=== PATIENT | male | born 1965 | race Caucasian/White ===

== ENCOUNTER 2016-04-15 12:17 | Inpatient (IN) | payer OTHER ==
[~2016-04-15] VITALS: Ht 182.9 cm; Wt 108.9 kg
[~2016-04-15 12:17] MED LIST: AMLO10TA2 PO; ASPI81TA13 PO; ATOR1TAB21 PO; AUGM875T27 PO; COLA100C PO; DOXY100T PO; EUCECRE3 EXT; HEPA100SYR IV; INSUDET SC; INSUHUMDS SC; INSULADS SC; INSULANT SC; ISOS30TA4 PO; LIDO5OI TOP; LISI-538 PO; LISI10TA4 PO; MAPA325T2 PO; METF1000 PO; METF500T PO; MYLASSUD PO; NORCOTAB PO; ONDA4TAB6 SL; [UNRECOGNIZED DRUG - CODE] IV
[2016-04-15] MEDS ORDERED: MIRALAX *UNIT DOSE* 17GM PACKET PO PRN (14:00)
[2016-04-15] MEDS ORDERED: DEXTROSE 50% 50 ML SYRINGE IV PRN (14:00)
[2016-04-15] MEDS ORDERED: GLUCOSE 4 GM CHEW TABLET PO PRN (14:00)
[2016-04-15] MEDS ORDERED: MOM 30ML SUSPENSION UDC PO PRN (14:00)
[2016-04-15] MEDS ORDERED: GLUCAGON FOR INJ 1 MG VIAL (J1610) SC PRN (14:00)
[2016-04-15] MEDS ORDERED: PERCOCET 5MG/325MG TAB PO PRN ×2 (14:00)
[2016-04-15 15:15] VITALS: BP 134/85
--- NOTE | 2016-04-15 15:56 | HPEPDOC ---
Cold Mill Operator Note ADMISSION H&P + RASHEEDA DATE OF ADMISSION: 04/15/2016 DATE OF SERVICE: 04/15/2016 Vascular Surgeon: Dr. Roís IDENTIFICATION STATEMENT: Patient is a 51-year-old gentleman status post left below the knee amputation admitted for comprehensive integrated inpatient rehabilitation. HISTORY OF PRESENT ILLNESS: Vision is a 51-year-old gentleman with multiple medical comorbidities including hypertension, diabetes mellitus, insulin- dependent, peripheral vascular disease and left toe amputation who presented to [facility] with worsening cellulitis and draining from the left lower limb. He was transferred to [facility] on 04/03/2016 where he was diagnosed with severe wet gangrene of the left lower limb. He underwent a guillotine amputation (Dr. Leon) of the left lower extremity with removal of necrotic muscle in preparation of definitive below the knee amputation. On 04/09 he underwent a left below the knee amputation with Dr. Ríos. He was maintained on IV antibiotics (Rocephin) and was transitioned to oral antibiotics (Augmentin). Hospital course was notable for uncontrolled hypertension for which his DENG inhibitor was increased. Regarding pain, patient has been using Percocet, OxyIR and T pump. On 04/15/2016 patient was deemed stable for discharge to [facility] acute inpatient rehabilitation. PAST MEDICAL HISTORY: Hypertension Insulin-dependent diabetes mellitus Dyslipidemia Cellulitis PAST SURGICAL HISTORY: Left great toe amputation ALLERGIES: Sulfa drugs MEDICATIONS: Lisinopril 40 mg daily Aspirin 81 mg daily Lipitor 20 mg daily Metformin 1000 mg by mouth twice daily Lantus 10 units subcutaneous daily OxyContin codon IR one to 2 tabs every 4 hours as needed for pain Augmentin XR 1000-62.5 tab 1 tab q 12 hours 7 more days FAMILY HX: Father 90yo, hes not aware of any chronic medical issues. SOCIAL HISTORY: Patient lives with his father in a one-story home, there are mostly ramps to enter the house, but he does have one step to manage. He denies use of tobacco, past or present. He reports very rare ingestion of alcohol stating that he usually sustained secondary to his diabetes. He denies any illicit drug use past or present. Review of Systems: General: no chills, +fatigue, no weight changes. Eyes: no change of vision. Ears, Nose & Throat: no sore throat, decreased hearing or nasal discharge. Cardiovascular: +intermittent LL edema, no chest pain, claudication, syncopal episodes. Pul: no cough, SOB, orthopnea. GI: +loose stools x 2 today; no abdominal pain, N/V, BRBPR/tarry stools. Genitourinary: no dysuria. Musculoskeletal: + mild intermittent mid back pain, chronic for which he uses heating pad with relief, no neck/joint pain, no muscle pain. Neurological: + phantom limb, intermittent, but no phantom limb pain; pain in residual limb, sharp; +numbness right LL to proximal leg. No numbness/ paresthesias hands, intermittent mild SCHULZ; no tremors, progressive weakness, seizures. Hematological: No bleeding disorders. Skin: + right silva sore for few months, desnt remember how he got it; no rashes. Psychiatric: no h/o depression , anxiety, behavioral issues. VITAL SIGNS: Temperature 97.3F, pulse 86, respiratory rate of 16, blood pressure 136/79, pulse ox 92% on room air PHYSICAL EXAMINATION: GENERAL: Well nourished, well developed, sitting up in bed, no acute distress. HEENT: Atraumatic. No facial droop. No jugular venous distention (JVD). PERRL, EOMI CARDIOVASCULAR: S1, S2, regular rate. No right lower limb edema or calf tenderness. LUNGS: Clear to auscultation bilaterally no wheezing rhonchi or rales. ABDOMEN: Soft, nontender, nondistended. Normoactive bowel sounds throughout. MUSCULOSKELETAL: Manual muscle testin/5 strength right lower limb and bilateral upper limbs in all major muscle groups, 3/5 left hip flexors, or/5 left knee extension. Sensation: Intact to soft touch bilateral upper and lower limbs. Deep tendon reflexes: Unable to elicit bilateral biceps or right patellar NEUROLOGICAL: Alert and oriented x 3. Answers all questions appropriately. Able to follow commands without difficulty. No dysarthria. SKIN: Left residual limb, dressing intact, no visable drainage; right silva sore, 1.5cm x 2mm depth, sourding erythema. Chronic venous stasis changes right leg. LABORATORY DATA: 04/03/2016: WBC count 14, hemoglobin 11.5, platelets 447, glucose 119, BUN/ creatinine: 13/0.8. In 1, ESR 105, lactic acid 2.5 IMAGING: Venous insufficiency exam 04/06/2016, no evidence of DVT left side. ASSESSMENT AND PLAN: 1. 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 Will maintain antibiotics for the next 7 days per discharge summary. Wound care daily. Will arrange follow-up appointment with Dr. Ríos in 2 weeks for staple removal. Patient will undergo thorough physical and occupational therapy evaluations followed by daily intensive therapy. Rehabilitation nursing for bladder, bowel, medication management as well as wound care. 2. Hypertension: As stated above, patients lisinopril was recently increased. Well monitor closely over the next on a 4 hours with medication adjustments as indicated. 3. Anemia: On no recent labs available. Well obtain morning labs with work-up/ treatment as indicated. 4. Diabetes mellitus, insulin-dependent: Tight glucose control facilitate healing. Continue metformin 1000 mg twice a day along with detemir 10 units subcutaneous daily. Insulin sliding scale before meals and at bedtime. Adjustments as indicated. 5. Peripheral vascular disease: Continue aspirin 81 mg daily, continue Lipitor 20 mg daily at bedtime. 6. Diet/nutrition: Well obtain a prealbumin with morning labs. Maintain patient on a carbohydrate consistent diet. Nutritional supplements as indicated. POST ADMISSION PHYSICIAN EVALUATION: On evaluation of the patient today there' ve been no significant medical issues or functional changes as compared to those noted in the preadmission screening document. This patient's inpatient rehabilitation remains necessary in light of the above conditions. The patient' s medical condition requires specialized care with physicians specially trained in physical medicine rehabilitation. The patient is capable motivated to participate in a minimum of 3 hours of therapy daily, 5 days minimum per week, and requires intensive inpatient rehabilitation to improve their functional status so that they can be safely to discharge back to their home. PROGNOSIS: Good ESTIMATED LENGTH OF STAY: 10-14 days. / Vital Signs see above Home Medications Scheduled Amlodipine Besylate (Amlodipine Besylate) 10 Mg Tab 10 MG PO DAILY Aspirin (Aspirin EC) 81 Mg Tab 81 MG PO DAILY (Reported) Atorvastatin Calcium (Atorvastatin Calcium) 20 Mg Tab 20 MG PO DAILY (Reported) Ceftriaxone Sod (Ceftriaxone Sodium) 500 Mg/5 Ml Inj 2,000 MG IV Q24H Last dose 11/03/15 Docusate Sodium (Colace) 100 Mg Cap 100 MG PO BID Eucerin (Eucerin) 1 Cre Cre 0 DOSE EXT BID Heparin Sodium (Porcine) (Heparin Lock Flush/NaCl F) 100 Unit/Ml Inj 200 UNITS IV PICC Insulin Detemir (Levemir) 1 Units/0.01 Ml Susp 8 UNITS SC DAILY Insulin Human Lispro (Humalog) 1 Units/0.01 Ml Inj 0 UNITS SC AC Insulin Human Lispro (Humalog) 1 Units/0.01 Ml Inj 0 UNITS SC QHS Isosorbide Mononitrate (Isosorbide Mononitrate ER) 30 Mg Tab 90 MG PO QAM Lidocaine HCl (Lidocaine) 5 % Oin 0 DOSE TOP DAILY Lisinopril (Lisinopril) 20 Mg Tab 20 MG PO BID Metformin Hydrochloride (Metformin HCl) 1,000 Mg Tab 1,000 MG PO BID (Reported) Ondansetron (Ondansetron Odt) 4 Mg Tab 8 MG SL DAILY@0830 Scheduled PRN Acetaminophen (Mapap) 325 Mg Tab 650 MG PO Q6HP PRN PRN MILD PAIN OR FEVER Acetaminophen/Hydrocodone (Trinity, Anexsia 5/325) 1 Tab Tab 1 TAB PO Q4HP PRN PRN PAIN Aluminum/Magnesium/Simeth (Mag-Al Plus 200-200-20 mg/5Ml) 30 Ml Susp 30 ML PO Q6HP PRN PRN HEARTBURN Heparin Sodium (Porcine) (Heparin Lock Flush/NaCl F) 100 Unit/Ml Inj 200 UNITS IV ASDIRECTED PRN PRN SEE LABEL COMMENTS Allergies Coded Allergies: No Known Allergies (Unverified , 06/30/15) FRANCES MIRANDA MD Apr 15, 2016 15:56
[2016-04-15] MEDS: HumaLOG INSULIN (NovoLOG) PER UNIT SC SCH ×2 (18:03→20:44)
[2016-04-15] MEDS ORDERED: OXYC-517 PO ×2 (18:04→18:05)
[2016-04-15] MEDS ORDERED: INSULANT SC (18:04)
[2016-04-15] MEDS ORDERED: AUGM875T27 PO (18:04)
[2016-04-15] MEDS ORDERED: HEPA500020 IV (18:04)
[2016-04-15] MEDS ORDERED: METF1000 PO (18:04)
[2016-04-15] MEDS ORDERED: LISI30TA4 PO (18:05)
[2016-04-15] MEDS ORDERED: LISI-538 PO (18:05)
[2016-04-15] MEDS ORDERED: ATOR1TAB21 PO (18:07)
[2016-04-15] MEDS ORDERED: ASPI1TAB PO (18:08)
[2016-04-15] MEDS: metFORMIN (GLUCOPHAGE) 1000 MG TABLET PO SCH (18:41)
[2016-04-15 19:36] VITALS: BP 145/88
[2016-04-15] MEDS: DOCUSATE SODIUM 100 MG CAP PO SCH (21:13)
[2016-04-15] MEDS: SENNA 8.6 MG TAB (SENOKOT) PO SCH (21:13)
[2016-04-15] MEDS: ATORVASTATIN 20 MG TAB PO SCH (21:15)
[2016-04-15] MEDS: HEPARIN SOD (PORCINE) 5000 UNITS/ML VIAL SC SCH (21:15)
[2016-04-15] MEDS: LACTOBACILLUS ACIDOPHILUS CAP (BACID) PO SCH (21:15)
[2016-04-15] MEDS: AUGMENTIN ES SUSP POWDER 600MG/5ML 125ML BTL PO SCH (21:17)
[2016-04-16 06:00] VITALS: BP 159/88
[2016-04-16] MEDS: HEPARIN SOD (PORCINE) 5000 UNITS/ML VIAL SC SCH ×3 (06:07→21:15)
[2016-04-16 07:13] LABS: BASO % 0.3 % (0.0-1.0); EOS % 11.9 % (0.0-3.0); LARGE UNSTAINED CELL # 0.3 K/mm3 (0.0-0.4); LARGE UNSTAINED CELL % 4.1 % (0.0-4.0); LYMPH # 1.3 K/mm3 (1.5-4.5); LYMPH % 16.5 % (24.0-44.0); MEAN CORPUSCULAR HGB CONC 31.7 g/dl (32.0-36.5); MONO # 0.6 K/mm3 (0.0-0.8); MONO % 7.9 % (0.0-5.0); NEUTROPHILS # 4.7 K/mm3 (1.8-7.7); NEUTROPHILS % 59.3 % (36.0-66.0); PLATELET COUNT, AUTOMATED 295 k/mm3 (150-450); RED CELL DISTRIBUTION WIDTH 15.7 % (11.5-14.5)
[2016-04-16] MEDS: HumaLOG INSULIN (NovoLOG) PER UNIT SC SCH ×4 (07:30→20:55)
[2016-04-16 07:40] LABS: ANION GAP 7 MEQ/L (8-16); BLOOD UREA NITROGEN 6 MG/DL (7-18); CARBON DIOXIDE LEVEL 29 MEQ/L (21-32); CHLORIDE LEVEL 103 MEQ/L (98-107); CREATININE FOR GFR 0.58 MG/DL (0.70-1.30); GLOMERULAR FILTRATION RATE > 60.0 (>56); GLUCOSE, FASTING 104 MG/DL (70-105); POTASSIUM SERUM 3.8 MEQ/L (3.5-5.1); SODIUM LEVEL 139 MEQ/L (136-145)
[2016-04-16] MEDS: LACTOBACILLUS ACIDOPHILUS CAP (BACID) PO SCH ×2 (08:13→21:14)
[2016-04-16] MEDS: metFORMIN (GLUCOPHAGE) 1000 MG TABLET PO SCH ×2 (08:13→17:18)
[2016-04-16] MEDS: DOCUSATE SODIUM 100 MG CAP PO SCH ×2 (08:14→20:54)
[2016-04-16] MEDS: PANTOPRAZOLE 40MG TAB (PROTONIX) PO SCH (08:14)
[2016-04-16] MEDS: LISINOPRIL 40 MG TAB PO SCH (08:14)
[2016-04-16] MEDS: LEVEMIR (INSULIN DETEMIR) 1 UNITS/0.01ML SC SCH (08:15)
[2016-04-16] MEDS ORDERED: LISINOPRIL 10 MG TAB PO SCH (09:00)
[2016-04-16] MEDS: AUGMENTIN ES SUSP POWDER 600MG/5ML 125ML BTL PO SCH ×2 (10:45→21:15)
--- NOTE | 2016-04-16 11:09 | IPNPDOC ---
[employer] Progress Note PROGRESS NOTE DATE OF ADMISSION: 04/15/2016 DATE OF SERVICE: 04/16/2016 Vascular Surgeon: Dr. Ríos IDENTIFICATION STATEMENT: Patient is a 51-year-old gentleman status post left below the knee amputation admitted for comprehensive integrated inpatient rehabilitation. PAST MEDICAL HISTORY: Hypertension Insulin-dependent diabetes mellitus Dyslipidemia Cellulitis PAST SURGICAL HISTORY: Left great toe amputation ALLERGIES: Sulfa drugs MEDICATIONS: Lisinopril 40 mg daily Aspirin 81 mg daily Lipitor 20 mg daily Metformin 1000 mg by mouth twice daily Lantus 10 units subcutaneous daily Percocet 1-2 tabs q4-6h prn Augmentin XR 1000-62.5 tab 1 tab q 12 hours SUBJECTIVE: Patient states feel ok. No issues overnight. No further loose stools, no BM yet today. Denies any CP, SOB, N/V, dysuria. VITAL SIGNS: Temperature 99.5F, pulse 88, respiratory rate of 20, blood pressure 159/88, pulse ox 93% on room air PHYSICAL EXAMINATION: GENERAL: Well nourished, well developed, sitting up in bed, no acute distress. HEENT: Atraumatic. No facial droop. PERRL, EOMI CARDIOVASCULAR: S1, S2, regular rate. No right lower limb edema or calf tenderness. LUNGS: Clear to auscultation bilaterally, no wheezing rhonchi or rales. ABDOMEN: Soft, nontender, nondistended. Normoactive bowel sounds throughout. MUSCULOSKELETAL: Mild Flexion contract left knee. MMT: 5/5 strength right lower limb in all major muscle groups, 5/5 left hip flexors, 5/5 left knee extension. Sensation: + senstaivity residual limb, but no allodynia. NEUROLOGICAL: Alert and oriented x 3. Answers all questions appropriately. Able to follow commands without difficulty. SKIN: Left residual limb, with yisel and sutures,healing well, no pus or significant erythema; right silva sore with foam dressing not removed. Chronic venous stasis changes right leg. LABORATORY DATA: 04/16/16: reviewed, see below. 04/03/2016: WBC count 14, hemoglobin 11.5, platelets 447, glucose 119, BUN/ creatinine: 13/0.8. In 1, ESR 105, lactic acid 2.5 IMAGING: Venous insufficiency exam 04/06/2016, no evidence of DVT left side. ASSESSMENT AND PLAN: 1. 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 Maintain antibiotic. Wound care daily. Will arrange follow-up appointment with Dr. Ríos in 2 weeks for staple removal. Continue daily physical and occupational therapy. Rehabilitation nursing for bladder, bowel, medication management as well as wound care. 2. Hypertension: Periodically mildly elevated. Lisinopril was recently increased. Pending readings over next 24h may require adjustments. 3. Anemia: Hgb ~stable sl less as compared to 04/03/16. Likelt ABL. Recheck periodically. 4. Diabetes mellitus, insulin-dependent: Tight glucose control facilitate healing. Continue metformin 1000 mg twice a day along with detemir 10 units subcutaneous daily. Insulin sliding scale before meals and at bedtime. Adjustments as indicated. 5. Peripheral vascular disease: Continue aspirin 81 mg daily, continue Lipitor 20 mg daily at bedtime. 6. Diet/malnutrition: Prealbumin low. Started Glucerna.Maintain patient on a carbohydrate consistent diet. / Vital Signs Vital Sign - Last 24 Hours 04/15/16 04/15/16 04/16/16 04/16/16 15:15 19:36 06:00 08:13 Temp 98.6 99.6 99.5 Pulse 91 92 88 Resp 18 19 19 20 B/P 134/85 145/88 159/88 Pulse Ox 95 95 93 O2 Delivery Room Air Room Air Room Air 04/16/16 08:43 Resp 20 Laboratory Data CBC/BMP Laboratory Tests 04/16/16 06:44 Calcium Level 8.0 L, Red Blood Count 3.89 L, Mean Corpuscular Volume 85.0, Mean Corpuscular Hemoglobin 27.0, Mean Corpuscular Hemoglobin Concent 31.7 L, Red Cell Distribution Width 15.7 H, Neutrophils (%) (Auto) 59.3, Lymphocytes (%) ( Auto) 16.5 L, Monocytes (%) (Auto) 7.9 H, Eosinophils (%) (Auto) 11.9 H, Basophils (%) (Auto) 0.3, Neutrophils # (Auto) 4.7, Lymphocytes # (Auto) 1.3 L, Monocytes # (Auto) 0.6, Eosinophils # (Auto) 1.0 H, Basophils # (Auto) 0.0 Labs 24H Laboratory Tests 2 04/15/16 16:31: Bedside Glucose (Misc Panel) 130H 04/15/16 19:26: Bedside Glucose (Misc Panel) 126H 04/16/16 06:09: Bedside Glucose (Misc Panel) 109H 04/16/16 06:44: Anion Gap 7L, White Blood Count 8.0, Red Blood Count 3.89L, Hemoglobin 10.5L, Hematocrit 33.1L, Mean Corpuscular Volume 85.0, Mean Corpuscular Hemoglobin 27.0 , Mean Corpuscular Hemoglobin Concent 31.7L, Red Cell Distribution Width 15.7H, Platelet Count 295, Neutrophils (%) (Auto) 59.3, Lymphocytes (%) (Auto) 16.5L, Monocytes (%) (Auto) 7.9H, Eosinophils (%) (Auto) 11.9H, Basophils (%) (Auto) 0.3, Neutrophils # (Auto) 4.7, Lymphocytes # (Auto) 1.3L, Monocytes # (Auto) 0.6 , Eosinophils # (Auto) 1.0H, Basophils # (Auto) 0.0, Blood Urea Nitrogen 6L, Creatinine 0.58L, Sodium Level 139, Potassium Level 3.8, Chloride Level 103, Carbon Dioxide Level 29, Calcium Level 8.0L, Glomerular Filtration Rate > 60.0, Large Unclassified Cells # 0.3, Large Unclassified Cells % 4.1H, Prealbumin 15.2L FSBS Laboratory Tests Test 04/15/16 16:31 04/15/16 19:26 04/16/16 06:09 Range/Units Bedside Glucose (Misc Panel) 130 126 109 70-105 MG/DL Allergies Allergies: Coded Allergies: No Known Allergies (Unverified , 06/30/15) Current Medications Current Medications Current Medications Acetaminophen (Tylenol Tab) 650 mg Q4HP PRN PO MILD PAIN (PS 1-4); Start at 14:00; Stop 05/15/16 at 13:59 Amoxicillin/ Clavulanate Potassium (Augmentin Es 600mg/5ml Susp.) 1,000 mg Q12H PO Last administered on 04/16/16 10:45; Start 04/15/16 at 21:00; Stop 04/22/16 at 20:59 Atorvastatin Calcium (Lipitor) 20 mg QHS PO Last administered on 04/15/16 21:15 ; Start 04/15/16 at 21:00; Stop 05/15/16 at 20:59 Dextrose (Dextrose 50%) 25 ml ASDIRECTED PRN IV SEE LABEL COMMENTS; Start at 14:00; Stop 05/15/16 at 13:59 Docusate Sodium (Colace) 100 mg BID PO ; Start 04/15/16 at 21:00; Stop 05/15/16 at 20:59 Glucagon (Glucagon) 1 mg ASDIRECTED PRN SC SEE LABEL COMMENTS; Start 04/15/16 at 14:00; Stop 05/15/16 at 13:59 Glucose (Glucose) 16 GM ASDIRECTED PRN PO SEE LABEL COMMENTS; Start 04/15/16 at 14:00; Stop 05/15/16 at 13:59 Heparin Sodium (Porcine) (Heparin) 5,000 units Q8H SC Last administered on 06:07; Start 04/15/16 at 22:00; Stop 04/20/16 at 21:59 Home Med (Med Rec Complete!) ASDIRECTED XX ; Start 04/15/16 at 18:15; Stop at 18:16; Status DC Insulin Detemir (Levemir Insulin) 10 units DAILY SC Last administered on 08:15; Start 04/16/16 at 09:00; Stop 05/16/16 at 08:59 Insulin Human Lispro (HumaLOG INSULIN) See Protocol Table AC SC Last administered on 04/16/16 07:30; Start 04/15/16 at 17:30; Stop 05/15/16 at 17:29 Insulin Human Lispro (HumaLOG INSULIN) See Protocol Table QHS SC ; Start at 21:00; Stop 05/15/16 at 20:59 Lactobacillus Acidophilus (Bacid) 1 ea BID PO Last administered on 04/16/16 08: 13; Start 04/15/16 at 21:00; Stop 05/15/16 at 20:59 Lisinopril (Prinivil) 30 mg DAILY PO ; Start 04/16/16 at 09:00; Stop 04/16/16 at 09:00; Status DC Lisinopril (Prinivil) 40 mg DAILY PO Last administered on 04/16/16 08:14; Start 04/16/16 at 09:00; Stop 05/16/16 at 08:59 Magnesium Hydroxide (Milk Of Magnesia) 30 ml DAILYPRN PRN PO CONSTIPATION; Start 04/15/16 at 14:00; Stop 05/15/16 at 13:59 Metformin HCl (Glucophage) 1,000 mg BID@,18 PO Last administered on 04/16/16 08:13; Start 04/15/16 at 18:00; Stop 05/15/16 at 17:59 Oxycodone/ Acetaminophen (Percocet 5mg/ 325mg Tablet) 1 tab Q4HP PRN PO MODERATE PAIN (PS 6-7) Last administered on 04/16/16 08:13; Start 04/15/16 at 14: 00; Stop 04/22/16 at 13:59 Oxycodone/ Acetaminophen (Percocet 5mg/ 325mg Tablet) 2 tab Q8HP PRN PO SEVERE PAIN (PS 8-10); Start 04/15/16 at 14:00; Stop 04/22/16 at 13:59 Pantoprazole Sodium (Protonix) 40 mg DAILY PO Last administered on 04/16/16 08: 14; Start 04/16/16 at 09:00; Stop 05/16/16 at 08:59 Polyethylene Glycol (Miralax) 1 pkt DAILY PRN PO CONSTIPATION; Start 04/15/16 at 14:00; Stop 05/15/16 at 13:59 Senna (Senokot) 1 tab QHS PO ; Start 04/15/16 at 21:00; Stop 05/15/16 at 20:59 FRANCES MIRANDA MD Apr 16, 2016 11:09
[2016-04-16 14:00] VITALS: BP 150/83
[2016-04-16 20:00] VITALS: BP 125/63
[2016-04-16] MEDS: SENNA 8.6 MG TAB (SENOKOT) PO SCH (20:55)
[2016-04-16] MEDS: ATORVASTATIN 20 MG TAB PO SCH (21:14)
[2016-04-17 06:00] VITALS: BP 153/85
[2016-04-17] MEDS: HEPARIN SOD (PORCINE) 5000 UNITS/ML VIAL SC SCH ×3 (06:10→21:28)
[2016-04-17] MEDS: metFORMIN (GLUCOPHAGE) 1000 MG TABLET PO SCH ×2 (08:16→17:57)
[2016-04-17] MEDS: LACTOBACILLUS ACIDOPHILUS CAP (BACID) PO SCH ×2 (08:16→21:27)
[2016-04-17] MEDS: LEVEMIR (INSULIN DETEMIR) 1 UNITS/0.01ML SC SCH (08:16)
[2016-04-17] MEDS: PANTOPRAZOLE 40MG TAB (PROTONIX) PO SCH (08:16)
[2016-04-17] MEDS: LISINOPRIL 40 MG TAB PO SCH (08:16)
[2016-04-17] MEDS: AUGMENTIN ES SUSP POWDER 600MG/5ML 125ML BTL PO SCH ×2 (08:17→21:28)
[2016-04-17] MEDS: HumaLOG INSULIN (NovoLOG) PER UNIT SC SCH ×4 (08:17→21:00)
[2016-04-17] MEDS: DOCUSATE SODIUM 100 MG CAP PO SCH ×2 (08:18→21:30)
--- NOTE | 2016-04-17 10:49 | IPNPDOC ---
[employer] Progress Note PROGRESS NOTE DATE OF ADMISSION: 04/15/2016 DATE OF SERVICE: 04/17/2016 Vascular Surgeon: Dr. Ríos IDENTIFICATION STATEMENT: Patient is a 51-year-old gentleman status post left below the knee amputation admitted for comprehensive integrated inpatient rehabilitation. PAST MEDICAL HISTORY: Hypertension Insulin-dependent diabetes mellitus Dyslipidemia Cellulitis PAST SURGICAL HISTORY: Left great toe amputation ALLERGIES: Sulfa drugs MEDICATIONS: Lisinopril 40 mg daily Aspirin 81 mg daily Lipitor 20 mg daily Metformin 1000 mg by mouth twice daily Lantus 10 units subcutaneous daily Percocet 1-2 tabs q4-6h prn Augmentin XR 1000-62.5 tab 1 tab q 12 hours SUBJECTIVE: Patient states feel ok. Had trouble sleeping, he states: [right leg] compression devise tethered me to the bed. Fell asleep ~4am. Also, thinks he might be coming down with something, has a cough. No CP, SOB, chills or diaphoresis. No other complaints. No further loose stools. Denies any N/V, dysuria. Pain adequately controlled. VITAL SIGNS: Temperature 97.9F, pulse 79, respiratory rate of 18, blood pressure 158/85, pulse ox 92% on room air PHYSICAL EXAMINATION: GENERAL: Well nourished, well developed, sitting up in WC, no acute distress. HEENT: Atraumatic. No facial droop. PERRL, EOMI CARDIOVASCULAR: S1, S2, regular rate. No right lower limb edema or calf tenderness. LUNGS: Clear to auscultation bilaterally, no wheezing rhonchi or rales. ABDOMEN: Soft, nontender, nondistended. Normoactive bowel sounds throughout. MUSCULOSKELETAL: MMT: 5/5 strength right lower limb in all major muscle groups , 5/5 left hip flexors, 5/5 left knee extension. NEUROLOGICAL: Alert and oriented x 3. Answers all questions appropriately. Able to follow commands without difficulty. SKIN: Left residual limb, with yisel and sutures, healing well, no pus or significant erythema; right silva sore with foam dressing not removed. Chronic venous stasis changes right leg. LABORATORY DATA: 04/16/16: reviewed, see below. 04/03/2016: WBC count 14, hemoglobin 11.5, platelets 447, glucose 119, BUN/ creatinine: 13/0.8. In 1, ESR 105, lactic acid 2.5 IMAGING: Venous insufficiency exam 04/06/2016, no evidence of DVT left side. ASSESSMENT AND PLAN: 1. 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 Maintain antibiotic. Wound care daily. Will arrange follow-up appointment with Dr. Ríos soon after discharge for staple removal. Continue daily physical and occupational therapy. Rehabilitation nursing for bladder, bowel, medication management as well as wound care. 2. Hypertension: Mildly elevated. Added Norvasc. Continue Lisinopril current dose. Further adjustments as needed. 3. Anemia: Hgb ~stable sl less as compared to 04/03/16. Recheck tomorrow. 4. Diabetes mellitus, insulin-dependent: Adequately controlled. Continue metformin 1000 mg twice a day along with detemir 10 units subcutaneous daily. Insulin sliding scale before meals and at bedtime. Adjustments as indicated. 5. Peripheral vascular disease: Continue aspirin 81 mg daily, continue Lipitor 20 mg daily at bedtime. 6. Diet/malnutrition: Prealbumin low. Started Glucerna.Maintain patient on a carbohydrate consistent diet. 7. Insomnia: Unsure why SCD was placed. It was not ordered given on anticoagulation with heparin. Have written nursing order not to place. 8. Cough: afebrile, lungs clear. No other symptoms to indicate pns. Will obtain CBC in morning. / Vital Signs Vital Sign - Last 24 Hours 04/16/16 04/16/16 04/17/16 14:00 20:00 06:00 Temp 97.9 98.8 97.9 Pulse 76 87 79 Resp 18 18 18 B/P 150/83 125/63 153/85 Pulse Ox 92 93 92 O2 Delivery Room Air Room Air Room Air Laboratory Data Labs 24H Laboratory Tests 2 04/16/16 11:31: Bedside Glucose (Misc Panel) 88 04/16/16 16:33: Bedside Glucose (Misc Panel) 106H 04/16/16 20:30: Bedside Glucose (Misc Panel) 135H 04/17/16 06:07: Bedside Glucose (Misc Panel) 119H FSBS Laboratory Tests Test 04/16/16 11:31 04/16/16 16:33 04/16/16 20:30 04/17/16 06:07 Range/Units Bedside Glucose (Misc Panel) 88 106 135 119 70-105 MG/DL Allergies Allergies: Coded Allergies: No Known Allergies (Unverified , 06/30/15) Current Medications Current Medications Current Medications Acetaminophen (Tylenol Tab) 650 mg Q4HP PRN PO MILD PAIN (PS 1-4); Start at 14:00; Stop 05/15/16 at 13:59 Amlodipine Besylate (Norvasc) 5 mg QPM PO ; Start 04/17/16 at 21:00; Stop at 20:59 Amoxicillin/ Clavulanate Potassium (Augmentin Es 600mg/5ml Susp.) 1,000 mg Q12H PO Last administered on 04/17/16 08:17; Start 04/15/16 at 21:00; Stop 04/22/16 at 20:59 Atorvastatin Calcium (Lipitor) 20 mg QHS PO Last administered on 04/16/16 21:14 ; Start 04/15/16 at 21:00; Stop 05/15/16 at 20:59 Dextrose (Dextrose 50%) 25 ml ASDIRECTED PRN IV SEE LABEL COMMENTS; Start at 14:00; Stop 05/15/16 at 13:59 Docusate Sodium (Colace) 100 mg BID PO ; Start 04/15/16 at 21:00; Stop 05/15/16 at 20:59 Glucagon (Glucagon) 1 mg ASDIRECTED PRN SC SEE LABEL COMMENTS; Start 04/15/16 at 14:00; Stop 05/15/16 at 13:59 Glucose (Glucose) 16 GM ASDIRECTED PRN PO SEE LABEL COMMENTS; Start 04/15/16 at 14:00; Stop 05/15/16 at 13:59 Heparin Sodium (Porcine) (Heparin) 5,000 units Q8H SC Last administered on 06:10; Start 04/15/16 at 22:00; Stop 04/20/16 at 21:59 Home Med (Med Rec Complete!) ASDIRECTED XX ; Start 04/15/16 at 18:15; Stop at 18:16; Status DC Insulin Detemir (Levemir Insulin) 10 units DAILY SC Last administered on 08:16; Start 04/16/16 at 09:00; Stop 05/16/16 at 08:59 Insulin Human Lispro (HumaLOG INSULIN) See Protocol Table AC SC Last administered on 04/17/16 08:17; Start 04/15/16 at 17:30; Stop 05/15/16 at 17:29 Insulin Human Lispro (HumaLOG INSULIN) See Protocol Table QHS SC ; Start at 21:00; Stop 05/15/16 at 20:59 Lactobacillus Acidophilus (Bacid) 1 ea BID PO Last administered on 04/17/16 08: 16; Start 04/15/16 at 21:00; Stop 05/15/16 at 20:59 Lisinopril (Prinivil) 30 mg DAILY PO ; Start 04/16/16 at 09:00; Stop 04/16/16 at 09:00; Status DC Lisinopril (Prinivil) 40 mg DAILY PO Last administered on 04/17/16 08:16; Start 04/16/16 at 09:00; Stop 05/16/16 at 08:59 Magnesium Hydroxide (Milk Of Magnesia) 30 ml DAILYPRN PRN PO CONSTIPATION; Start 04/15/16 at 14:00; Stop 05/15/16 at 13:59 Metformin HCl (Glucophage) 1,000 mg BID@,18 PO Last administered on 04/17/16 08:16; Start 04/15/16 at 18:00; Stop 05/15/16 at 17:59 Oxycodone/ Acetaminophen (Percocet 5mg/ 325mg Tablet) 1 tab Q4HP PRN PO MODERATE PAIN (PS 6-7) Last administered on 04/16/16 08:13; Start 04/15/16 at 14: 00; Stop 04/22/16 at 13:59 Oxycodone/ Acetaminophen (Percocet 5mg/ 325mg Tablet) 2 tab Q8HP PRN PO SEVERE PAIN (PS 8-10); Start 04/15/16 at 14:00; Stop 04/22/16 at 13:59 Pantoprazole Sodium (Protonix) 40 mg DAILY PO Last administered on 04/17/16 08: 16; Start 04/16/16 at 09:00; Stop 05/16/16 at 08:59 Polyethylene Glycol (Miralax) 1 pkt DAILY PRN PO CONSTIPATION; Start 3/1/17 at 14:00; Stop 05/15/16 at 13:59 Senna (Senokot) 1 tab [facility] PO ; Start 04/15/16 at 21:00; Stop 05/15/16 at 20:59 FRANCES MIRANDA MD Apr 17, 2016 10:49
[2016-04-17 14:00] VITALS: BP 129/76
[2016-04-17 20:00] VITALS: BP 137/78
[2016-04-17] MEDS: amLODIPine 5 MG TAB PO SCH (21:27)
[2016-04-17] MEDS: ATORVASTATIN 20 MG TAB PO SCH (21:27)
[2016-04-17] MEDS: SENNA 8.6 MG TAB (SENOKOT) PO SCH (21:30)
[2016-04-18 06:00] VITALS: BP 150/79
[2016-04-18] MEDS: HEPARIN SOD (PORCINE) 5000 UNITS/ML VIAL SC SCH ×3 (06:02→21:15)
[2016-04-18] MEDS: ACETAMINOPHEN TAB 650MG DOSE (2X325MG) PO PRN ×3 (06:08→21:15)
[2016-04-18 07:17] LABS: ANION GAP 8 MEQ/L (8-16); BLOOD UREA NITROGEN 9 MG/DL (7-18); CALCIUM LEVEL 8.2 MG/DL (8.5-10.1); CARBON DIOXIDE LEVEL 26 MEQ/L (21-32); CHLORIDE LEVEL 106 MEQ/L (98-107); CREATININE FOR GFR 0.58 MG/DL (0.70-1.30); GLOMERULAR FILTRATION RATE > 60.0 (>56); GLUCOSE, FASTING 141 MG/DL (70-105); POTASSIUM SERUM 3.7 MEQ/L (3.5-5.1); SODIUM LEVEL 140 MEQ/L (136-145)
[2016-04-18] MEDS: HumaLOG INSULIN (NovoLOG) PER UNIT SC SCH ×4 (08:01→21:00)
[2016-04-18] MEDS: metFORMIN (GLUCOPHAGE) 1000 MG TABLET PO SCH ×2 (08:02→17:29)
[2016-04-18 09:05] LABS: MEAN CORPUSCULAR HGB CONC 32.4 g/dl (32.0-36.5); MEAN CORPUSCULAR VOLUME 86.4 fl (80.0-96.0); RED CELL DISTRIBUTION WIDTH 16.1 % (11.5-14.5); WHITE BLOOD COUNT 8.5 K/mm3 (4.0-10.0)
[2016-04-18] MEDS: AUGMENTIN ES SUSP POWDER 600MG/5ML 125ML BTL PO SCH ×2 (10:21→21:15)
[2016-04-18] MEDS: DOCUSATE SODIUM 100 MG CAP PO SCH ×2 (10:22→19:50)
[2016-04-18] MEDS: LEVEMIR (INSULIN DETEMIR) 1 UNITS/0.01ML SC SCH (10:23)
[2016-04-18] MEDS: LACTOBACILLUS ACIDOPHILUS CAP (BACID) PO SCH ×2 (10:23→21:16)
[2016-04-18] MEDS: LISINOPRIL 40 MG TAB PO SCH (10:24)
[2016-04-18] MEDS: PANTOPRAZOLE 40MG TAB (PROTONIX) PO SCH (10:24)
[2016-04-18 14:00] VITALS: BP 144/85
[2016-04-18] MEDS: SENNA 8.6 MG TAB (SENOKOT) PO SCH (19:50)
[2016-04-18 20:00] VITALS: BP 148/84
[2016-04-18] MEDS: ATORVASTATIN 20 MG TAB PO SCH (21:16)
[2016-04-18] MEDS: amLODIPine 5 MG TAB PO SCH (21:16)
[2016-04-19] MEDS: HEPARIN SOD (PORCINE) 5000 UNITS/ML VIAL SC SCH ×3 (05:17→21:04)
[2016-04-19 06:00] VITALS: BP 144/84
[2016-04-19] MEDS: metFORMIN (GLUCOPHAGE) 1000 MG TABLET PO SCH ×2 (08:00→17:42)
[2016-04-19] MEDS: HumaLOG INSULIN (NovoLOG) PER UNIT SC SCH ×4 (08:22→20:55)
[2016-04-19] MEDS: LISINOPRIL 40 MG TAB PO SCH (08:23)
[2016-04-19] MEDS: PANTOPRAZOLE 40MG TAB (PROTONIX) PO SCH (08:23)
[2016-04-19] MEDS: LACTOBACILLUS ACIDOPHILUS CAP (BACID) PO SCH ×2 (08:23→21:02)
[2016-04-19] MEDS: AUGMENTIN ES SUSP POWDER 600MG/5ML 125ML BTL PO SCH ×2 (08:24→21:02)
[2016-04-19] MEDS: DOCUSATE SODIUM 100 MG CAP PO SCH ×2 (08:25→20:55)
[2016-04-19] MEDS: LEVEMIR (INSULIN DETEMIR) 1 UNITS/0.01ML SC SCH (08:25)
[2016-04-19] MEDS: ACETAMINOPHEN TAB 650MG DOSE (2X325MG) PO PRN (08:36)
[2016-04-19 14:00] VITALS: BP 131/77
[2016-04-19 20:00] VITALS: BP 135/86
[2016-04-19] MEDS: SENNA 8.6 MG TAB (SENOKOT) PO SCH (20:55)
[2016-04-19] MEDS: amLODIPine 5 MG TAB PO SCH (21:03)
[2016-04-19] MEDS: ATORVASTATIN 20 MG TAB PO SCH (21:03)
[2016-04-20 06:00] VITALS: BP 158/89
[2016-04-20] MEDS: HEPARIN SOD (PORCINE) 5000 UNITS/ML VIAL SC SCH ×3 (06:35→21:01)
[2016-04-20] MEDS: ACETAMINOPHEN TAB 650MG DOSE (2X325MG) PO PRN (06:38)
[2016-04-20] MEDS: HumaLOG INSULIN (NovoLOG) PER UNIT SC SCH ×4 (08:08→21:00)
[2016-04-20] MEDS: DOCUSATE SODIUM 100 MG CAP PO SCH ×2 (08:09→21:00)
[2016-04-20] MEDS: LEVEMIR (INSULIN DETEMIR) 1 UNITS/0.01ML SC SCH (08:09)
[2016-04-20] MEDS: metFORMIN (GLUCOPHAGE) 1000 MG TABLET PO SCH ×2 (08:09→18:08)
[2016-04-20] MEDS: PANTOPRAZOLE 40MG TAB (PROTONIX) PO SCH (08:09)
[2016-04-20] MEDS: LISINOPRIL 40 MG TAB PO SCH (08:09)
[2016-04-20] MEDS: LACTOBACILLUS ACIDOPHILUS CAP (BACID) PO SCH ×2 (08:09→21:00)
[2016-04-20] MEDS: AUGMENTIN ES SUSP POWDER 600MG/5ML 125ML BTL PO SCH ×2 (08:09→21:01)
--- NOTE | 2016-04-20 12:58 | IPNPDOC ---
Loan Officer Progress Note PROGRESS NOTE DATE OF ADMISSION: 04/15/2016 DATE OF SERVICE: 04/20/2016 Vascular Surgeon: Dr. Ríos IDENTIFICATION STATEMENT: Patient is a 51-year-old gentleman status post left below the knee amputation admitted for comprehensive integrated inpatient rehabilitation. PAST MEDICAL HISTORY: Hypertension Insulin-dependent diabetes mellitus Dyslipidemia Cellulitis PAST SURGICAL HISTORY: Left great toe amputation ALLERGIES: Sulfa drugs MEDICATIONS: Lisinopril 40 mg daily Aspirin 81 mg daily Lipitor 20 mg daily Metformin 1000 mg by mouth twice daily Lantus 10 units subcutaneous daily Percocet 1-2 tabs q4-6h prn Augmentin XR 1000-62.5 tab 1 tab q 12 hours SUBJECTIVE: Patient states feel ok. No specific complaints except that kitchen said he would have Swedish cheese on his sandwich and it came with [place] cheese. Slept ok. No CP, SOB, chills or diaphoresis. Denies any N/V, dysuria. Pain adequately controlled. VITAL SIGNS: Temperature 97.8F, pulse 79, respiratory rate of 18, blood pressure 158/89, pulse ox 93% on room air PHYSICAL EXAMINATION: GENERAL: Well nourished, well developed, sitting up in WC, no acute distress. HEENT: Atraumatic. No facial droop. PERRL, EOMI CARDIOVASCULAR: S1, S2, regular rate. No right lower limb edema or calf tenderness. LUNGS: Clear to auscultation bilaterally, no wheezing rhonchi or rales. ABDOMEN: Soft, nontender, nondistended. Normoactive bowel sounds throughout. MUSCULOSKELETAL: MMT: 5/5 strength right lower limb in all major muscle groups , 5/5 left hip flexors, 5/5 left knee extension. NEUROLOGICAL: Alert and oriented x 3. Answers all questions appropriately. Able to follow commands without difficulty. SKIN: Left residual limb, with yisel and sutures, healing well, no pus or significant erythema; right silva sore with foam dressing not removed. Chronic venous stasis changes right leg. LABORATORY DATA: 04/18/16: reviewed 04/03/2016: WBC count 14, hemoglobin 11.5, platelets 447, glucose 119, BUN/ creatinine: 13/0.8. In 1, ESR 105, lactic acid 2.5 IMAGING: Venous insufficiency exam 04/06/2016, no evidence of DVT left side. ASSESSMENT AND PLAN: 1. 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 Maintain antibiotic. Wound care daily. Will arrange follow-up appointment with Dr. Ríos soon after discharge for staple removal. Continue daily physical and occupational therapy. Rehabilitation nursing for bladder, bowel, medication management as well as wound care. 2. Hypertension: Improved control. S/p adding Norvasc last week. Continue Lisinopril current dose. Further adjustments as needed. 3. Anemia: Recheck tomorrow. 4. Diabetes mellitus, insulin-dependent: Adequately controlled. Continue metformin 1000 mg twice a day along with detemir 10 units subcutaneous daily. Insulin sliding scale before meals and at bedtime. Adjustments as indicated. 5. Peripheral vascular disease: Continue aspirin 81 mg daily, continue Lipitor 20 mg daily at bedtime. 6. Diet/malnutrition: Prealbumin low. Started Glucerna.Maintain patient on a carbohydrate consistent diet. 7. Insomnia: Improved after d/cing SCDs. 8. Cough: resolved / Vital Signs Vital Sign - Last 24 Hours 04/19/16 04/19/16 04/19/16 04/19/16 14:00 20:00 21:03 21:15 Temp 98.1 98.0 Pulse 78 76 76 Resp 18 18 B/P 131/77 135/86 135/86 Pulse Ox 94 95 O2 Delivery Room Air Room Air Room Air 04/20/16 04/20/16 06:00 09:00 Temp 97.8 Pulse 79 Resp 18 B/P 158/89 Pulse Ox 93 O2 Delivery Room Air Room Air Laboratory Data Labs 24H Laboratory Tests 2 04/19/16 16:35: Bedside Glucose (Misc Panel) 93 04/19/16 20:38: Bedside Glucose (Misc Panel) 123H 04/20/16 06:26: Bedside Glucose (Misc Panel) 123H 04/20/16 11:36: Bedside Glucose (Misc Panel) 103 FSBS Laboratory Tests Test 04/19/16 16:35 04/19/16 20:38 04/20/16 06:26 04/20/16 11:36 Range/Units Bedside Glucose (Misc Panel) 93 123 123 103 70-105 MG/DL Allergies Allergies: Coded Allergies: No Known Allergies (Unverified , 06/30/15) Current Medications Current Medications Current Medications Acetaminophen (Tylenol Tab) 650 mg Q4HP PRN PO MILD PAIN (PS 1-4) Last administered on 04/20/16 06:38; Start 04/15/16 at 14:00; Stop 05/15/16 at 13:59 Amlodipine Besylate (Norvasc) 5 mg QPM PO Last administered on 04/19/16 21:03; Start 04/17/16 at 21:00; Stop 05/17/16 at 20:59 Amoxicillin/ Clavulanate Potassium (Augmentin Es 600mg/5ml Susp.) 1,000 mg Q12H PO Last administered on 04/20/16 08:09; Start 04/15/16 at 21:00; Stop 04/22/16 at 20:59 Atorvastatin Calcium (Lipitor) 20 mg QHS PO Last administered on 04/19/16 21:03 ; Start 04/15/16 at 21:00; Stop 05/15/16 at 20:59 Dextrose (Dextrose 50%) 25 ml ASDIRECTED PRN IV SEE LABEL COMMENTS; Start at 14:00; Stop 05/15/16 at 13:59 Docusate Sodium (Colace) 100 mg BID PO Last administered on 04/18/16 10:22; Start 04/15/16 at 21:00; Stop 05/15/16 at 20:59 Glucagon (Glucagon) 1 mg ASDIRECTED PRN SC SEE LABEL COMMENTS; Start 04/15/16 at 14:00; Stop 05/15/16 at 13:59 Glucose (Glucose) 16 GM ASDIRECTED PRN PO SEE LABEL COMMENTS; Start 04/15/16 at 14:00; Stop 05/15/16 at 13:59 Heparin Sodium (Porcine) (Heparin) 5,000 units Q8H SC Last administered on 06:35; Start 04/15/16 at 22:00; Stop 04/25/16 at 21:59 Home Med (Med Rec Complete!) ASDIRECTED XX ; Start 04/15/16 at 18:15; Stop at 18:16; Status DC Insulin Detemir (Levemir Insulin) 10 units DAILY SC Last administered on 08:09; Start 04/16/16 at 09:00; Stop 05/16/16 at 08:59 Insulin Human Lispro (HumaLOG INSULIN) See Protocol Table AC SC Last administered on 04/20/16 12:38; Start 04/15/16 at 17:30; Stop 05/15/16 at 17:29 Insulin Human Lispro (HumaLOG INSULIN) See Protocol Table QHS SC ; Start at 21:00; Stop 05/15/16 at 20:59 Lactobacillus Acidophilus (Bacid) 1 ea BID PO Last administered on 04/20/16 08: 09; Start 04/15/16 at 21:00; Stop 05/15/16 at 20:59 Lisinopril (Prinivil) 30 mg DAILY PO ; Start 04/16/16 at 09:00; Stop 04/16/16 at 09:00; Status DC Lisinopril (Prinivil) 40 mg DAILY PO Last administered on 04/20/16 08:09; Start 04/16/16 at 09:00; Stop 05/16/16 at 08:59 Magnesium Hydroxide (Milk Of Magnesia) 30 ml DAILYPRN PRN PO CONSTIPATION; Start 04/15/16 at 14:00; Stop 05/15/16 at 13:59 Metformin HCl (Glucophage) 1,000 mg BID@ PO Last administered on 04/20/16 08:09; Start 04/15/16 at 18:00; Stop 05/15/16 at 17:59 Oxycodone/ Acetaminophen (Percocet 5mg/ 325mg Tablet) 1 tab Q4HP PRN PO MODERATE PAIN (PS 6-7) Last administered on 04/16/16 08:13; Start 04/15/16 at 14: 00; Stop 04/22/16 at 13:59 Oxycodone/ Acetaminophen (Percocet 5mg/ 325mg Tablet) 2 tab Q8HP PRN PO SEVERE PAIN (PS 8-10); Start 04/15/16 at 14:00; Stop 04/22/16 at 13:59 Pantoprazole Sodium (Protonix) 40 mg DAILY PO Last administered on 04/20/16 08: 09; Start 04/16/16 at 09:00; Stop 05/16/16 at 08:59 Polyethylene Glycol (Miralax) 1 pkt DAILY PRN PO CONSTIPATION; Start 04/15/16 at 14:00; Stop 05/15/16 at 13:59 Senna (Senokot) 1 tab QHS PO ; Start 04/15/16 at 21:00; Stop 05/15/16 at 20:59 FRANCES MIRANDA MD Apr 20, 2016 12:58
[2016-04-20 14:00] VITALS: BP 144/77
[2016-04-20 20:00] VITALS: BP 137/78
[2016-04-20] MEDS: SENNA 8.6 MG TAB (SENOKOT) PO SCH (21:00)
[2016-04-20] MEDS: amLODIPine 5 MG TAB PO SCH (21:00)
[2016-04-20] MEDS: ATORVASTATIN 20 MG TAB PO SCH (21:00)
[2016-04-20 22:35] VITALS: BP 182/76
[2016-04-21 06:00] VITALS: BP 138/76
[2016-04-21] MEDS: HEPARIN SOD (PORCINE) 5000 UNITS/ML VIAL SC SCH ×3 (06:44→21:03)
[2016-04-21 06:55] LABS: MEAN CORPUSCULAR HEMOGLOBIN 27.8 pg (27.0-33.0); MEAN CORPUSCULAR VOLUME 86.9 fl (80.0-96.0); RED CELL DISTRIBUTION WIDTH 16.4 % (11.5-14.5); WHITE BLOOD COUNT 11.7 K/mm3 (4.0-10.0)
[2016-04-21 07:57] LABS: ANION GAP 9 MEQ/L (8-16); BLOOD UREA NITROGEN 8 MG/DL (7-18); CALCIUM LEVEL 8.4 MG/DL (8.5-10.1); CARBON DIOXIDE LEVEL 27 MEQ/L (21-32); CHLORIDE LEVEL 106 MEQ/L (98-107); CREATININE FOR GFR 0.58 MG/DL (0.70-1.30); GLOMERULAR FILTRATION RATE > 60.0 (>56); GLUCOSE, FASTING 117 MG/DL (70-105); SODIUM LEVEL 142 MEQ/L (136-145)
[2016-04-21] MEDS: AUGMENTIN ES SUSP POWDER 600MG/5ML 125ML BTL PO SCH ×2 (08:16→21:03)
[2016-04-21] MEDS: HumaLOG INSULIN (NovoLOG) PER UNIT SC SCH ×4 (08:17→21:54)
[2016-04-21] MEDS: LEVEMIR (INSULIN DETEMIR) 1 UNITS/0.01ML SC SCH (08:17)
[2016-04-21] MEDS: LACTOBACILLUS ACIDOPHILUS CAP (BACID) PO SCH ×2 (08:17→21:02)
[2016-04-21] MEDS: DOCUSATE SODIUM 100 MG CAP PO SCH ×3 (08:17→21:00)
[2016-04-21] MEDS: PANTOPRAZOLE 40MG TAB (PROTONIX) PO SCH (08:18)
[2016-04-21] MEDS: LISINOPRIL 40 MG TAB PO SCH (08:18)
[2016-04-21] MEDS: metFORMIN (GLUCOPHAGE) 1000 MG TABLET PO SCH ×2 (08:18→18:20)
--- NOTE | 2016-04-21 10:44 | IPNPDOC ---
Chief Accountant Progress Note PROGRESS NOTE DATE OF ADMISSION: 04/15/2016 DATE OF SERVICE: 04/21/2016 Vascular Surgeon: Dr. Ríos IDENTIFICATION STATEMENT: Patient is a 51-year-old gentleman status post left below the knee amputation admitted for comprehensive integrated inpatient rehabilitation. PAST MEDICAL HISTORY: Hypertension Insulin-dependent diabetes mellitus Dyslipidemia Cellulitis PAST SURGICAL HISTORY: Left great toe amputation ALLERGIES: Sulfa drugs MEDICATIONS: Lisinopril 40 mg daily Aspirin 81 mg daily Lipitor 20 mg daily Metformin 1000 mg by mouth twice daily Lantus 10 units subcutaneous daily Percocet 1-2 tabs q4-6h prn Augmentin XR 1000-62.5 tab 1 tab q 12 hours SUBJECTIVE: Patient states feel ok. No complaints. Slept ok. No CP, SOB, chills or diaphoresis. Denies any N/V, dysuria, diarrhea. Pain adequately controlled. VITAL SIGNS: Temperature 97.3F, pulse 79, respiratory rate of 18, blood pressure 138/76, pulse ox 93% on room air PHYSICAL EXAMINATION: GENERAL: Well nourished, well developed, sitting up in WC, no acute distress. HEENT: Atraumatic. No facial droop. PERRL, EOMI CARDIOVASCULAR: S1, S2, regular rate. No right lower limb edema or calf tenderness. LUNGS: Clear to auscultation bilaterally, no wheezing rhonchi or rales. ABDOMEN: Soft, nontender, nondistended. Normoactive bowel sounds throughout. MUSCULOSKELETAL: MMT: 5/5 strength right lower limb in all major muscle groups , 5/5 left hip flexors, 5/5 left knee extension. NEUROLOGICAL: Alert and oriented x 3. Answers all questions appropriately. Able to follow commands without difficulty. SKIN: Left residual limb, with yisel and sutures, healing well, no pus or significant erythema; right silva sore with foam dressing not removed. Chronic venous stasis changes right leg. LABORATORY DATA: 04/21/16: reviewed 04/03/2016: WBC count 14, hemoglobin 11.5, platelets 447, glucose 119, BUN/ creatinine: 13/0.8. In 1, ESR 105, lactic acid 2.5 IMAGING: Venous insufficiency exam 04/06/2016, no evidence of DVT left side. ASSESSMENT AND PLAN: 1. 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 Maintain antibiotic. Wound care daily. Will arrange follow-up appointment with Dr. Ríos soon after discharge for staple removal. Continue daily physical and occupational therapy. Rehabilitation nursing for bladder, bowel, medication management as well as wound care. 2. Leukocytosis: Patient asymptomatic and incision site healing well. Today last day of abx. Will add-on inflammatory markers. Obtain Blood Cx. Repeat labs in am. 3. Hypertension: Improved control. S/p addition of Norvasc last week. Continue Lisinopril current dose. Further adjustments as needed. 4. Anemia: Hbg trend up. 5. Diabetes mellitus, insulin-dependent: Adequately controlled. Continue metformin 1000 mg twice a day along with detemir 10 units subcutaneous daily. Insulin sliding scale before meals and at bedtime. Adjustments as indicated. 6. Peripheral vascular disease: Continue aspirin 81 mg daily, continue Lipitor 20 mg daily at bedtime. 7. Diet/malnutrition: Prealbumin remains low. Continue Glucerna. Maintain patient on a carbohydrate consistent diet. 8. Insomnia: Improved after d/cing SCDs. 9. Cough: Resolved. / Vital Signs Vital Sign - Last 24 Hours 04/20/16 04/20/16 04/20/16 04/20/16 14:00 20:00 20:00 21:00 Temp 98.0 98.3 Pulse 82 81 81 Resp 18 18 B/P 144/77 137/78 137/78 Pulse Ox 96 93 O2 Delivery Room Air Room Air Room Air 04/21/16 06:00 Temp 97.3 Pulse 79 Resp 18 B/P 138/76 Pulse Ox 93 O2 Delivery Room Air Laboratory Data CBC/BMP Laboratory Tests 04/21/16 06:40 Calcium Level 8.4 L, Red Blood Count 4.23 L, Mean Corpuscular Volume 86.9, Mean Corpuscular Hemoglobin 27.8, Mean Corpuscular Hemoglobin Concent 32.0, Red Cell Distribution Width 16.4 H Labs 24H Laboratory Tests 2 04/20/16 11:36: Bedside Glucose (Misc Panel) 103 04/20/16 17:03: Bedside Glucose (Misc Panel) 120H 04/20/16 19:54: Bedside Glucose (Misc Panel) 346H 04/20/16 20:51: Bedside Glucose (Misc Panel) 93 04/21/16 06:40: Anion Gap 9, Blood Urea Nitrogen 8, Creatinine 0.58L, Sodium Level 142, Potassium Level 4.0, Chloride Level 106, Carbon Dioxide Level 27, Calcium Level 8.4L, Glomerular Filtration Rate > 60.0, Prealbumin 15.7L 04/21/16 06:49: Bedside Glucose (Misc Panel) 119H FSBS Laboratory Tests Test 04/20/16 11:36 04/20/16 17:03 04/20/16 19:54 04/20/16 20:51 Range/Units Bedside Glucose (Misc Panel) 103 120 346 93 70-105 MG/DL Test 04/21/16 06:49 Range/Units Bedside Glucose (Misc Panel) 119 70-105 MG/DL Allergies Allergies: Coded Allergies: No Known Allergies (Unverified , 06/30/15) Current Medications Current Medications Current Medications Acetaminophen (Tylenol Tab) 650 mg Q4HP PRN PO MILD PAIN (PS 1-4) Last administered on 04/20/16 06:38; Start 04/15/16 at 14:00; Stop 05/15/16 at 13:59 Amlodipine Besylate (Norvasc) 5 mg QPM PO Last administered on 04/20/16 21:00; Start 04/17/16 at 21:00; Stop 05/17/16 at 20:59 Amoxicillin/ Clavulanate Potassium (Augmentin Es 600mg/5ml Susp.) 1,000 mg Q12H PO Last administered on 04/21/16 08:16; Start 04/15/16 at 21:00; Stop 04/22/16 at 20:59 Atorvastatin Calcium (Lipitor) 20 mg QHS PO Last administered on 04/20/16 21:00 ; Start 04/15/16 at 21:00; Stop 05/15/16 at 20:59 Dextrose (Dextrose 50%) 25 ml ASDIRECTED PRN IV SEE LABEL COMMENTS; Start at 14:00; Stop 05/15/16 at 13:59 Docusate Sodium (Colace) 100 mg BID PO Last administered on 04/18/16 10:22; Start 04/15/16 at 21:00; Stop 05/15/16 at 20:59 Glucagon (Glucagon) 1 mg ASDIRECTED PRN SC SEE LABEL COMMENTS; Start 04/15/16 at 14:00; Stop 05/15/16 at 13:59 Glucose (Glucose) 16 GM ASDIRECTED PRN PO SEE LABEL COMMENTS; Start 04/15/16 at 14:00; Stop 05/15/16 at 13:59 Heparin Sodium (Porcine) (Heparin) 5,000 units Q8H SC Last administered on 06:44; Start 04/15/16 at 22:00; Stop 04/25/16 at 21:59 Home Med (Med Rec Complete!) ASDIRECTED XX ; Start 04/15/16 at 18:15; Stop at 18:16; Status DC Insulin Detemir (Levemir Insulin) 10 units DAILY SC Last administered on 08:17; Start 04/16/16 at 09:00; Stop 05/16/16 at 08:59 Insulin Human Lispro (HumaLOG INSULIN) See Protocol Table AC SC Last administered on 04/21/16 08:17; Start 04/15/16 at 17:30; Stop 05/15/16 at 17:29 Insulin Human Lispro (HumaLOG INSULIN) See Protocol Table QHS SC ; Start at 21:00; Stop 05/15/16 at 20:59 Lactobacillus Acidophilus (Bacid) 1 ea BID PO Last administered on 04/21/16 08: 17; Start 04/15/16 at 21:00; Stop 05/15/16 at 20:59 Lisinopril (Prinivil) 30 mg DAILY PO ; Start 04/16/16 at 09:00; Stop 04/16/16 at 09:00; Status DC Lisinopril (Prinivil) 40 mg DAILY PO Last administered on 04/21/16 08:18; Start 04/16/16 at 09:00; Stop 05/16/16 at 08:59 Magnesium Hydroxide (Milk Of Magnesia) 30 ml DAILYPRN PRN PO CONSTIPATION; Start 04/15/16 at 14:00; Stop 05/15/16 at 13:59 Metformin HCl (Glucophage) 1,000 mg BID@,18 PO Last administered on 04/21/16 08:18; Start 04/15/16 at 18:00; Stop 05/15/16 at 17:59 Oxycodone/ Acetaminophen (Percocet 5mg/ 325mg Tablet) 1 tab Q4HP PRN PO MODERATE PAIN (PS 6-7) Last administered on 04/16/16 08:13; Start 04/15/16 at 14: 00; Stop 04/22/16 at 13:59 Oxycodone/ Acetaminophen (Percocet 5mg/ 325mg Tablet) 2 tab Q8HP PRN PO SEVERE PAIN (PS 8-10); Start 04/15/16 at 14:00; Stop 04/22/16 at 13:59 Pantoprazole Sodium (Protonix) 40 mg DAILY PO Last administered on 04/21/16 08: 18; Start 04/16/16 at 09:00; Stop 05/16/16 at 08:59 Polyethylene Glycol (Miralax) 1 pkt DAILY PRN PO CONSTIPATION; Start 04/15/16 at 14:00; Stop 05/15/16 at 13:59 Senna (Senokot) 1 tab QHS PO ; Start 04/15/16 at 21:00; Stop 05/15/16 at 20:59 FRANCES MIRANDA MD Apr 21, 2016 10:44 17 at 18:16; Status DC Insulin Detemir (Levemir Insulin) 10 units DAILY SC Last administered on 08:17; Start 04/16/16 at 09:00; Stop 05/16/16 at 08:59 Insulin Human Lispro (HumaLOG INSULIN) See Protocol Table AC SC Last administered on 04/21/16 08:17; Start 04/15/16 at 17:30; Stop 05/15/16 at 17:29 Insulin Human Lispro (HumaLOG INSULIN) See Protocol Table QHS SC ; Start at 21:00; Stop 05/15/16 at 20:59 Lactobacillus Acidophilus (Bacid) 1 ea BID PO Last administered on 04/21/16 08: 17; Start 04/15/16 at 21:00; Stop 05/15/16 at 20:59 Lisinopril (Prinivil) 30 mg DAILY PO ; Start 04/16/16 at 09:00; Stop 04/16/16 at 09:00; Status DC Lisinopril (Prinivil) 40 mg DAILY PO Last administered on 04/21/16 08:18; Start 04/16/16 at 09:00; Stop 05/16/16 at 08:59 Magnesium Hydroxide (Milk Of Magnesia) 30 ml DAILYPRN PRN PO CONSTIPATION; Start 04/15/16 at 14:00; Stop 05/15/16 at 13:59 Metformin HCl (Glucophage) 1,000 mg BID@08,18 PO Last administered on 04/21/16 08:18; Start 04/15/16 at 18:00; Stop 05/15/16 at 17:59 Oxycodone/ Acetaminophen (Percocet 5mg/ 325mg Tablet) 1 tab Q4HP PRN PO MODERATE PAIN (PS 6-7) Last administered on 04/16/16 08:13; Start 04/15/16 at 14: 00; Stop 04/22/16 at 13:59 Oxycodone/ Acetaminophen (Percocet 5mg/ 325mg Tablet) 2 tab Q8HP PRN PO SEVERE PAIN (PS 8-10); Start 04/15/16 at 14:00; Stop 04/22/16 at 13:59 Pantoprazole Sodium (Protonix) 40 mg DAILY PO Last administered on 04/21/16 08: 18; Start 04/16/16 at 09:00; Stop 05/16/16 at 08:59 Polyethylene Glycol (Miralax) 1 pkt DAILY PRN PO CONSTIPATION; Start 04/15/16 at 14:00; Stop 05/15/16 at 13:59 Senna (Senokot) 1 tab QHS PO ; Start 04/15/16 at 21:00; Stop 05/15/16 at 20:59 FRANCES MIRANDA MD Apr 21, 2016 10:44
[2016-04-21 14:00] VITALS: BP 121/69
[2016-04-21 20:00] VITALS: BP 125/75
[2016-04-21] MEDS: SENNA 8.6 MG TAB (SENOKOT) PO SCH (21:00)
[2016-04-21] MEDS: amLODIPine 5 MG TAB PO SCH (21:03)
[2016-04-21] MEDS: ATORVASTATIN 20 MG TAB PO SCH (21:03)
[2016-04-22 06:00] VITALS: BP 127/64
[2016-04-22] MEDS: HEPARIN SOD (PORCINE) 5000 UNITS/ML VIAL SC SCH ×3 (06:19→21:44)
[2016-04-22 06:38] LABS: BASO % 0.3 % (0.0-1.0); EOS # 2.1 K/mm3 (0.0-0.50); EOS % 12.5 % (0.0-3.0); LARGE UNSTAINED CELL # 0.3 K/mm3 (0.0-0.4); LARGE UNSTAINED CELL % 1.7 % (0.0-4.0); LYMPH # 3.3 K/mm3 (1.5-4.5); LYMPH % 17.5 % (24.0-44.0); MEAN CORPUSCULAR HEMOGLOBIN 27.6 pg (27.0-33.0); NEUTROPHILS # 10.5 K/mm3 (1.8-7.7); NEUTROPHILS % 61.9 % (36.0-66.0); PLATELET COUNT, AUTOMATED 339 k/mm3 (150-450); RED CELL DISTRIBUTION WIDTH 16.3 % (11.5-14.5); WHITE BLOOD COUNT 16.9 K/mm3 (4.0-10.0)
[2016-04-22 06:55] LABS: ANION GAP 8 MEQ/L (8-16); BLOOD UREA NITROGEN 15 MG/DL (7-18); CALCIUM LEVEL 8.6 MG/DL (8.5-10.1); CARBON DIOXIDE LEVEL 26 MEQ/L (21-32); CHLORIDE LEVEL 108 MEQ/L (98-107); CREATININE FOR GFR 0.82 MG/DL (0.70-1.30); GLOMERULAR FILTRATION RATE > 60.0 (>56); GLUCOSE, FASTING 145 MG/DL (70-105); POTASSIUM SERUM 3.9 MEQ/L (3.5-5.1); SODIUM LEVEL 142 MEQ/L (136-145)
[2016-04-22 07:07] LABS: ERYTHROCYTE SEDIMENTATION RATE 30 mm/hr (0-20)
[2016-04-22] MEDS: HumaLOG INSULIN (NovoLOG) PER UNIT SC SCH ×4 (07:51→21:00)
[2016-04-22] MEDS: metFORMIN (GLUCOPHAGE) 1000 MG TABLET PO SCH ×2 (07:52→17:34)
[2016-04-22] MEDS: DOCUSATE SODIUM 100 MG CAP PO SCH (09:00)
[2016-04-22] MEDS: LISINOPRIL 40 MG TAB PO SCH (09:34)
[2016-04-22] MEDS: PANTOPRAZOLE 40MG TAB (PROTONIX) PO SCH (09:34)
[2016-04-22] MEDS: AUGMENTIN ES SUSP POWDER 600MG/5ML 125ML BTL PO SCH (09:35)
[2016-04-22] MEDS: LACTOBACILLUS ACIDOPHILUS CAP (BACID) PO SCH ×2 (09:35→21:44)
[2016-04-22] MEDS: LEVEMIR (INSULIN DETEMIR) 1 UNITS/0.01ML SC SCH (09:36)
--- NOTE | 2016-04-22 11:10 | IPNPDOC ---
Recording Studio Set Up Worker Progress Note PROGRESS NOTE DATE OF ADMISSION: 04/15/2016 DATE OF SERVICE: 04/22/2016 Vascular Surgeon: Dr. Ríos IDENTIFICATION STATEMENT: Patient is a 51-year-old gentleman status post left below the knee amputation admitted for comprehensive integrated inpatient rehabilitation. PAST MEDICAL HISTORY: Hypertension Insulin-dependent diabetes mellitus Dyslipidemia Cellulitis PAST SURGICAL HISTORY: Left great toe amputation ALLERGIES: Sulfa drugs MEDICATIONS: Lisinopril 40 mg daily Aspirin 81 mg daily Lipitor 20 mg daily Metformin 1000 mg by mouth twice daily Lantus 10 units subcutaneous daily Percocet 1-2 tabs q4-6h prn SUBJECTIVE: Patient states was up most of the night with diarrhea. States watery. Denies abdominal pain, nausea, or chills. No other complaints. No CP, SOB, diaphoresis, dysuria, lightheadedness. Pain adequately controlled. VITAL SIGNS: Temperature 96.6F, pulse 93, respiratory rate of 18, blood pressure 127/64, pulse ox 94% on room air PHYSICAL EXAMINATION: GENERAL: Well nourished, well developed, sitting up in WC, no acute distress. HEENT: Atraumatic. No facial droop. PERRL, EOMI CARDIOVASCULAR: S1, S2, regular rate. No right lower limb edema or calf tenderness. LUNGS: Clear to auscultation bilaterally, no wheezing rhonchi or rales. ABDOMEN: Soft, nontender, nondistended. Normoactive bowel sounds throughout. MUSCULOSKELETAL: MMT: 5/5 strength right lower limb in all major muscle groups , 5/5 left hip flexors, 5/5 left knee extension. NEUROLOGICAL: Alert and oriented x 3. Answers all questions appropriately. Able to follow commands without difficulty. SKIN: Left residual limb, with dressing not removed as it was just redressed ( last chaeck u=yesterday, C/I no pus or significant erythema; right silva sore/ ulceration, mild surrounding erythema ~same as admission. Chronic venous stasis changes right leg. LABORATORY DATA: 04/22/16: reviewed, see below 04/03/2016: WBC count 14, hemoglobin 11.5, platelets 447, glucose 119, BUN/ creatinine: 13/0.8. In 1, ESR 105, lactic acid 2.5 IMAGING: Venous insufficiency exam 04/06/2016, no evidence of DVT left side. ASSESSMENT AND PLAN: 1. 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 Maintain antibiotic. Wound care daily. Will arrange follow-up appointment with Dr. Ríos soon after discharge for staple removal. Patient making progress functionally. Continue daily physical and occupational therapy. Rehabilitation nursing for bladder, bowel, medication management as well as wound care. 2. Leukocytosis: Increased today, ESR down, CRP stable. F/u BCx which were done yesterday. Obtain stool for c.diff. Start Flagyl. Repeat labs in am. 3. Hypertension: Improved control. S/p addition of Norvasc last week. Continue Lisinopril current dose. Further adjustments if needed. 4. Anemia: Hbg trend up. 5. Diabetes mellitus, insulin-dependent: Mildly elevated. May be 2nd infection. Continue metformin 1000 mg twice a day along with detemir 10 units subcutaneous daily. Insulin sliding scale before meals and at bedtime. Adjustments as indicated. 6. Peripheral vascular disease: Continue aspirin 81 mg daily, continue Lipitor 20 mg daily at bedtime. 7. Diet/malnutrition: Prealbumin remains low. May be 2nd infection. Tx as above. Continue Glucerna. Maintain patient on a carbohydrate consistent diet. 8. Insomnia: Recurrent 2nd diarrhea. 9. Cough: Resolved. / Vital Signs Vital Sign - Last 24 Hours 04/21/16 04/21/16 04/21/16 04/21/16 14:00 20:00 21:00 21:03 Temp 98.2 99.3 Pulse 93 93 93 Resp 18 18 B/P 121/69 125/75 125/75 Pulse Ox 98 95 O2 Delivery Room Air Room Air Room Air 04/22/16 06:00 Temp 96.6 Pulse 93 Resp 18 B/P 127/64 Pulse Ox 94 O2 Delivery Room Air Laboratory Data CBC/BMP Laboratory Tests 04/22/16 06:24 Calcium Level 8.6, Red Blood Count 4.59, Mean Corpuscular Volume 89.0, Mean Corpuscular Hemoglobin 27.6, Mean Corpuscular Hemoglobin Concent 31.0 L, Red Cell Distribution Width 16.3 H, Neutrophils (%) (Auto) 61.9, Lymphocytes (%) ( Auto) 17.5 L, Monocytes (%) (Auto) 6.0 H, Eosinophils (%) (Auto) 12.5 H, Basophils (%) (Auto) 0.3, Neutrophils # (Auto) 10.5 H, Lymphocytes # (Auto) 3.3 , Monocytes # (Auto) 1.0 H, Eosinophils # (Auto) 2.1 H, Basophils # (Auto) 0.0 Labs 24H Laboratory Tests 2 04/21/16 11:39: Bedside Glucose (Misc Panel) 157H 04/21/16 16:31: Bedside Glucose (Misc Panel) 142H 04/21/16 21:41: Bedside Glucose (Misc Panel) 143H 04/22/16 06:24: Anion Gap 8, White Blood Count 16.9H, Red Blood Count 4.59, Hemoglobin 12.7L, Hematocrit 40.8L, Mean Corpuscular Volume 89.0, Mean Corpuscular Hemoglobin 27.6 , Mean Corpuscular Hemoglobin Concent 31.0L, Red Cell Distribution Width 16.3H, Platelet Count 339, Neutrophils (%) (Auto) 61.9, Lymphocytes (%) (Auto) 17.5L, Monocytes (%) (Auto) 6.0H, Eosinophils (%) (Auto) 12.5H, Basophils (%) (Auto) 0.3, Neutrophils # (Auto) 10.5H, Lymphocytes # (Auto) 3.3, Monocytes # (Auto) 1.0H, Eosinophils # (Auto) 2.1H, Basophils # (Auto) 0.0, C-Reactive Protein, Quantitative 0.30, Blood Urea Nitrogen 15#, Creatinine 0.82, Sodium Level 142, Potassium Level 3.9, Chloride Level 108H, Carbon Dioxide Level 26, Calcium Level 8.6, Erythrocyte Sedimentation Rate 30H, Glomerular Filtration Rate > 60.0 , Large Unclassified Cells # 0.3, Large Unclassified Cells % 1.7 FSBS Laboratory Tests Test 04/21/16 11:39 04/21/16 16:31 04/21/16 21:41 Range/Units Bedside Glucose (Misc Panel) 157 142 143 70-105 MG/DL Microbiology Microbiology 04/21/16 Blood Culture, Received Pending 04/21/16 Blood Culture, Received Pending 04/22/16 Clostridium difficile (PCR), Received Pending Allergies Allergies: Coded Allergies: No Known Allergies (Unverified , 06/30/15) Current Medications Current Medications Current Medications Acetaminophen (Tylenol Tab) 650 mg Q4HP PRN PO MILD PAIN (PS 1-4) Last administered on 04/20/16 06:38; Start 04/15/16 at 14:00; Stop 05/15/16 at 13:59 Amlodipine Besylate (Norvasc) 5 mg QPM PO Last administered on 04/21/16 21:03; Start 04/17/16 at 21:00; Stop 05/17/16 at 20:59 Amoxicillin/ Clavulanate Potassium (Augmentin Es 600mg/5ml Susp.) 1,000 mg Q12H PO Last administered on 04/22/16 09:35; Start 04/15/16 at 21:00; Stop 04/22/16 at 10:16; Status DC Atorvastatin Calcium (Lipitor) 20 mg QHS PO Last administered on 04/21/16 21:03 ; Start 04/15/16 at 21:00; Stop 05/15/16 at 20:59 Dextrose (Dextrose 50%) 25 ml ASDIRECTED PRN IV SEE LABEL COMMENTS; Start at 14:00; Stop 05/15/16 at 13:59 Docusate Sodium (Colace) 100 mg BID PO Last administered on 04/18/16 10:22; Start 04/15/16 at 21:00; Stop 04/22/16 at 10:17; Status DC Glucagon (Glucagon) 1 mg ASDIRECTED PRN SC SEE LABEL COMMENTS; Start 04/15/16 at 14:00; Stop 05/15/16 at 13:59 Glucose (Glucose) 16 GM ASDIRECTED PRN PO SEE LABEL COMMENTS; Start 04/15/16 at 14:00; Stop 05/15/16 at 13:59 Heparin Sodium (Porcine) (Heparin) 5,000 units Q8H SC Last administered on 06:19; Start 04/15/16 at 22:00; Stop 04/25/16 at 21:59 Home Med (Med Rec Complete!) ASDIRECTED XX ; Start 04/15/16 at 18:15; Stop at 18:16; Status DC Insulin Detemir (Levemir Insulin) 10 units DAILY SC Last administered on 09:36; Start 04/16/16 at 09:00; Stop 05/16/16 at 08:59 Insulin Human Lispro (HumaLOG INSULIN) See Protocol Table AC SC Last administered on 04/22/16 07:51; Start 04/15/16 at 17:30; Stop 05/15/16 at 17:29 Insulin Human Lispro (HumaLOG INSULIN) See Protocol Table QHS SC ; Start at 21:00; Stop 05/15/16 at 20:59 Lactobacillus Acidophilus (Bacid) 1 ea BID PO Last administered on 04/22/16 09: 35; Start 04/15/16 at 21:00; Stop 05/15/16 at 20:59 Lisinopril (Prinivil) 30 mg DAILY PO ; Start 04/16/16 at 09:00; Stop 04/16/16 at 09:00; Status DC Lisinopril (Prinivil) 40 mg DAILY PO Last administered on 04/22/16 09:34; Start 04/16/16 at 09:00; Stop 05/16/16 at 08:59 Magnesium Hydroxide (Milk Of Magnesia) 30 ml DAILYPRN PRN PO CONSTIPATION; Start 04/15/16 at 14:00; Stop 05/15/16 at 13:59 Metformin HCl (Glucophage) 1,000 mg BID@ PO Last administered on 04/22/16 07:52; Start 04/15/16 at 18:00; Stop 05/15/16 at 17:59 Metronidazole (Flagyl) 500 mg Q8H PO ; Start 04/22/16 at 06:00; Stop 04/29/16 at 05:59 Oxycodone/ Acetaminophen (Percocet 5mg/ 325mg Tablet) 1 tab Q4HP PRN PO MODERATE PAIN (PS 6-7) Last administered on 04/16/16 08:13; Start 04/15/16 at 14: 00; Stop 04/28/16 at 13:59 Oxycodone/ Acetaminophen (Percocet 5mg/ 325mg Tablet) 2 tab Q8HP PRN PO SEVERE PAIN (PS 8-10); Start 04/15/16 at 14:00; Stop 04/28/16 at 13:59 Pantoprazole Sodium (Protonix) 40 mg DAILY PO Last administered on 04/22/16 09: 34; Start 04/16/16 at 09:00; Stop 05/16/16 at 08:59 Polyethylene Glycol (Miralax) 1 pkt DAILY PRN PO CONSTIPATION; Start 04/15/16 at 14:00; Stop 05/15/16 at 13:59 Senna (Senokot) 1 tab QHS PO ; Start 04/15/16 at 21:00; Stop 04/22/16 at 10:17; Status DC FRANCES MIRANDA MD Apr 22, 2016 11:10
[2016-04-22] MEDS: metroNIDAZOLE (FLAGYL) 500 MG TAB PO SCH ×3 (12:46→21:44)
[2016-04-22 14:00] VITALS: BP 116/61
[2016-04-22 20:00] VITALS: BP 133/76
[2016-04-22] MEDS: amLODIPine 5 MG TAB PO SCH (21:44)
[2016-04-22] MEDS: ATORVASTATIN 20 MG TAB PO SCH (21:44)
[2016-04-23 06:00] VITALS: BP 118/64
[2016-04-23] MEDS: metroNIDAZOLE (FLAGYL) 500 MG TAB PO SCH ×3 (06:31→21:51)
[2016-04-23] MEDS: HEPARIN SOD (PORCINE) 5000 UNITS/ML VIAL SC SCH ×3 (06:31→21:51)
[2016-04-23 07:00] LABS: MEAN CORPUSCULAR HEMOGLOBIN 27.6 pg (27.0-33.0); MEAN CORPUSCULAR HGB CONC 31.8 g/dl (32.0-36.5); PLATELET COUNT, AUTOMATED 330 k/mm3 (150-450); RED CELL DISTRIBUTION WIDTH 16.3 % (11.5-14.5); WHITE BLOOD COUNT 14.2 K/mm3 (4.0-10.0)
[2016-04-23 07:05] LABS: ANION GAP 7 MEQ/L (8-16); BLOOD UREA NITROGEN 11 MG/DL (7-18); CARBON DIOXIDE LEVEL 26 MEQ/L (21-32); CHLORIDE LEVEL 109 MEQ/L (98-107); GLOMERULAR FILTRATION RATE > 60.0 (>56); GLUCOSE, FASTING 119 MG/DL (70-105); POTASSIUM SERUM 3.6 MEQ/L (3.5-5.1); SODIUM LEVEL 142 MEQ/L (136-145)
[2016-04-23 08:27] LABS: ERYTHROCYTE SEDIMENTATION RATE 25 mm/hr (0-20)
[2016-04-23 08:30] LABS: EOSINOPHILS 13 % (0-5)
[2016-04-23] MEDS: HumaLOG INSULIN (NovoLOG) PER UNIT SC SCH ×4 (08:33→21:00)
[2016-04-23] MEDS: metFORMIN (GLUCOPHAGE) 1000 MG TABLET PO SCH ×2 (08:34→17:16)
[2016-04-23] MEDS: PANTOPRAZOLE 40MG TAB (PROTONIX) PO SCH (08:34)
[2016-04-23] MEDS: LACTOBACILLUS ACIDOPHILUS CAP (BACID) PO SCH ×2 (08:34→21:51)
[2016-04-23] MEDS: LISINOPRIL 40 MG TAB PO SCH (08:36)
[2016-04-23] MEDS: LEVEMIR (INSULIN DETEMIR) 1 UNITS/0.01ML SC SCH (08:38)
--- NOTE | 2016-04-23 10:32 | IPNPDOC ---
Culinary Artist Progress Note PROGRESS NOTE DATE OF ADMISSION: 04/15/2016 DATE OF SERVICE: 04/23/2016 Vascular Surgeon: Dr. Ríos IDENTIFICATION STATEMENT: Patient is a 51-year-old gentleman status post left below the knee amputation admitted for comprehensive integrated inpatient rehabilitation. PAST MEDICAL HISTORY: Hypertension Insulin-dependent diabetes mellitus Dyslipidemia Cellulitis PAST SURGICAL HISTORY: Left great toe amputation ALLERGIES: Sulfa drugs MEDICATIONS: Flagyl 500mg q8h Lisinopril 40 mg daily Aspirin 81 mg daily Lipitor 20 mg daily Metformin 1000 mg by mouth twice daily Lantus 10 units subcutaneous daily Percocet 1-2 tabs q4-6h prn SUBJECTIVE: Patient states feels better today. Still loose stools, but much less. Still denies abdominal pain, nausea, or chills. Was able to sleep well last night. No CP, SOB, diaphoresis, dysuria, lightheadedness. Pain adequately controlled. VITAL SIGNS: Temperature 98.1F, pulse 80, respiratory rate of 18, blood pressure 118/64, pulse ox 98% on room air PHYSICAL EXAMINATION: GENERAL: Well nourished, well developed, sitting up in WC, no acute distress. HEENT: Atraumatic. No facial droop. PERRL, EOMI CARDIOVASCULAR: S1, S2, regular rate. No right lower limb edema or calf tenderness. LUNGS: Clear to auscultation bilaterally, no wheezing rhonchi or rales. ABDOMEN: Soft, nontender, nondistended. Normoactive bowel sounds throughout. MUSCULOSKELETAL: MMT: 5/5 strength right lower limb in all major muscle groups , 5/5 left hip flexors, 5/5 left knee extension. NEUROLOGICAL: Alert and oriented x 3. Answers all questions appropriately. Able to follow commands without difficulty. SKIN: Left residual limb, with dressing not removed (last checked 04/22/16, C/I no pus or significant erythema; right silva sore/ulceration, mild surrounding erythema ~same as admission. Chronic venous stasis changes right leg. LABORATORY DATA: 04/23/16: reviewed, see below 04/22/16: stool +c.diff Blood Cx x 2 04/21/16: NGTD 04/03/2016: WBC count 14, hemoglobin 11.5, platelets 447, glucose 119, BUN/ creatinine: 13/0.8. In 1, ESR 105, lactic acid 2.5 IMAGING: Venous insufficiency exam 04/06/2016, no evidence of DVT left side. ASSESSMENT AND PLAN: 1. 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 S/p course abx. Wound care daily. Will arrange follow-up appointment with Dr. Ríos soon after discharge for staple removal. Patient making progress functionally. Continue daily physical and occupational therapy. Rehabilitation nursing for bladder, bowel, medication management as well as wound care. 2. C. diff colitis: Responding to treatment. Continue Flagyl (d#03/31) 3. Hypertension: Improved control. S/p addition of Norvasc last week. Continue Lisinopril current dose. Further adjustments if needed. 4. Diabetes mellitus, insulin-dependent: improved BG today. Continue metformin 1000 mg twice a day along with detemir 10 units subcutaneous daily. Insulin sliding scale before meals and at bedtime. Adjustments as indicated. 5. Peripheral vascular disease: Continue aspirin 81 mg daily, continue Lipitor 20 mg daily at bedtime. 6. Diet/malnutrition: Prealbumin remains low. Maybe 2nd infection. Tx as above. Continue Glucerna. Maintain patient on a carbohydrate consistent diet. 7. Insomnia: Recurrent 2nd diarrhea. 8. Cough: Resolved. / Vital Signs Vital Sign - Last 24 Hours 04/22/16 04/22/16 04/22/16 04/22/16 14:00 20:00 20:00 21:44 Temp 98.2 98.1 Pulse 85 80 84 Resp 18 18 B/P 116/61 133/76 131/78 Pulse Ox 92 96 O2 Delivery Room Air Room Air Room Air 04/23/16 06:00 Temp 98.1 Pulse 80 Resp 18 B/P 118/64 Pulse Ox 98 O2 Delivery Room Air Laboratory Data CBC/BMP Laboratory Tests 04/23/16 06:21 Calcium Level 8.0 L, Red Blood Count 4.26 L, Mean Corpuscular Volume 87.0, Mean Corpuscular Hemoglobin 27.6, Mean Corpuscular Hemoglobin Concent 31.8 L, Red Cell Distribution Width 16.3 H, Neutrophils (%) (Auto) , Lymphocytes (%) (Auto) , Monocytes (%) (Auto) , Eosinophils (%) (Auto) , Basophils (%) (Auto) , Neutrophils # (Auto) , Lymphocytes # (Auto) , Monocytes # (Auto) , Eosinophils # (Auto) , Basophils # (Auto) Labs 24H Laboratory Tests 2 04/22/16 11:24: Bedside Glucose (Misc Panel) 137H 04/22/16 16:20: Bedside Glucose (Misc Panel) 139H 04/22/16 19:31: Bedside Glucose (Misc Panel) 126H 04/23/16 06:21: Anion Gap 7L, White Blood Count 14.2H, Red Blood Count 4.26L, Hemoglobin 11.8L, Hematocrit 37.0L, Mean Corpuscular Volume 87.0, Mean Corpuscular Hemoglobin 27.6 , Mean Corpuscular Hemoglobin Concent 31.8L, Red Cell Distribution Width 16.3H, Platelet Count 330, Neutrophils (%) (Auto) , Lymphocytes (%) (Auto) , Monocytes (%) (Auto) , Eosinophils (%) (Auto) , Basophils (%) (Auto) , Neutrophils # (Auto ) , Lymphocytes # (Auto) , Monocytes # (Auto) , Eosinophils # (Auto) , Basophils # (Auto) , C-Reactive Protein, Quantitative < 0.30, Blood Urea Nitrogen 11, Creatinine 0.70, Sodium Level 142, Potassium Level 3.6, Chloride Level 109H, Carbon Dioxide Level 26, Calcium Level 8.0L, Eosinophils (Manual) 13H, Erythrocyte Sedimentation Rate 25H, Glomerular Filtration Rate > 60.0, Large Unclassified Cells # , Large Unclassified Cells % , Lymphocytes (Manual) 32, Monocytes (Manual) 1, Neutrophils 54, Platelet Estimate NORMAL, Red Blood Cell Morphology NORMAL FSBS Laboratory Tests Test 04/22/16 11:24 04/22/16 16:20 04/22/16 19:31 Range/Units Bedside Glucose (Misc Panel) 137 139 126 70-105 MG/DL Microbiology Microbiology 04/21/16 Blood Culture - Preliminary, Resulted No growth after 24 hours . All specim... 04/21/16 Blood Culture - Preliminary, Resulted No growth after 24 hours . All specim... 04/22/16 Clostridium difficile (PCR) - Final, Complete Allergies Allergies: Coded Allergies: No Known Allergies (Unverified , 06/30/15) Current Medications Current Medications Current Medications Acetaminophen (Tylenol Tab) 650 mg Q4HP PRN PO MILD PAIN (PS 1-4) Last administered on 04/20/16 06:38; Start 04/15/16 at 14:00; Stop 05/15/16 at 13:59 Amlodipine Besylate (Norvasc) 5 mg QPM PO Last administered on 04/22/16 21:44; Start 04/17/16 at 21:00; Stop 05/17/16 at 20:59 Amoxicillin/ Clavulanate Potassium (Augmentin Es 600mg/5ml Susp.) 1,000 mg Q12H PO Last administered on 04/22/16 09:35; Start 04/15/16 at 21:00; Stop 04/22/16 at 10:16; Status DC Atorvastatin Calcium (Lipitor) 20 mg QHS PO Last administered on 04/22/16 21:44 ; Start 04/15/16 at 21:00; Stop 05/15/16 at 20:59 Dextrose (Dextrose 50%) 25 ml ASDIRECTED PRN IV SEE LABEL COMMENTS; Start at 14:00; Stop 05/15/16 at 13:59 Docusate Sodium (Colace) 100 mg BID PO Last administered on 04/18/16 10:22; Start 04/15/16 at 21:00; Stop 04/22/16 at 10:17; Status DC Glucagon (Glucagon) 1 mg ASDIRECTED PRN SC SEE LABEL COMMENTS; Start 04/15/16 at 14:00; Stop 05/15/16 at 13:59 Glucose (Glucose) 16 GM ASDIRECTED PRN PO SEE LABEL COMMENTS; Start 04/15/16 at 14:00; Stop 05/15/16 at 13:59 Heparin Sodium (Porcine) (Heparin) 5,000 units Q8H SC Last administered on 06:31; Start 04/15/16 at 22:00; Stop 04/25/16 at 21:59 Home Med (Med Rec Complete!) ASDIRECTED XX ; Start 04/15/16 at 18:15; Stop at 18:16; Status DC Insulin Detemir (Levemir Insulin) 10 units DAILY SC Last administered on 08:38; Start 04/16/16 at 09:00; Stop 05/16/16 at 08:59 Insulin Human Lispro (HumaLOG INSULIN) See Protocol Table AC SC Last administered on 04/23/16 08:33; Start 04/15/16 at 17:30; Stop 05/15/16 at 17:29 Insulin Human Lispro (HumaLOG INSULIN) See Protocol Table QHS SC ; Start at 21:00; Stop 05/15/16 at 20:59 Lactobacillus Acidophilus (Bacid) 1 ea BID PO Last administered on 04/23/16 08: 34; Start 04/15/16 at 21:00; Stop 05/15/16 at 20:59 Lisinopril (Prinivil) 30 mg DAILY PO ; Start 04/16/16 at 09:00; Stop 04/16/16 at 09:00; Status DC Lisinopril (Prinivil) 40 mg DAILY PO Last administered on 04/23/16 08:36; Start 04/16/16 at 09:00; Stop 05/16/16 at 08:59 Magnesium Hydroxide (Milk Of Magnesia) 30 ml DAILYPRN PRN PO CONSTIPATION; Start 04/15/16 at 14:00; Stop 05/15/16 at 13:59 Metformin HCl (Glucophage) 1,000 mg BID@08,18 PO Last administered on 04/23/16 08:34; Start 04/15/16 at 18:00; Stop 05/15/16 at 17:59 Metronidazole (Flagyl) 500 mg Q8H PO Last administered on 04/23/16 06:31; Start 04/22/16 at 06:00; Stop 04/29/16 at 05:59 Oxycodone/ Acetaminophen (Percocet 5mg/ 325mg Tablet) 1 tab Q4HP PRN PO MODERATE PAIN (PS 6-7) Last administered on 04/16/16 08:13; Start 04/15/16 at 14: 00; Stop 04/28/16 at 13:59 Oxycodone/ Acetaminophen (Percocet 5mg/ 325mg Tablet) 2 tab Q8HP PRN PO SEVERE PAIN (PS 8-10); Start 04/15/16 at 14:00; Stop 04/28/16 at 13:59 Pantoprazole Sodium (Protonix) 40 mg DAILY PO Last administered on 04/23/16 08: 34; Start 04/16/16 at 09:00; Stop 05/16/16 at 08:59 Polyethylene Glycol (Miralax) 1 pkt DAILY PRN PO CONSTIPATION; Start 04/15/16 at 14:00; Stop 05/15/16 at 13:59 Senna (Senokot) 1 tab QHS PO ; Start 04/15/16 at 21:00; Stop 04/22/16 at 10:17; Status DC FRANCES MIRANDA MD Apr 23, 2016 10:32
--- NOTE | 2016-04-23 11:29 | IPNPDOC ---
Installation And Repair Technician Progress Note PROGRESS NOTE DATE OF ADMISSION: 04/15/2016 DATE OF SERVICE: 04/23/2016 Vascular Surgeon: Dr. Ríos IDENTIFICATION STATEMENT: Patient is a 51-year-old gentleman status post left below the knee amputation admitted for comprehensive integrated inpatient rehabilitation. PAST MEDICAL HISTORY: Hypertension Insulin-dependent diabetes mellitus Dyslipidemia Cellulitis PAST SURGICAL HISTORY: Left great toe amputation ALLERGIES: Sulfa drugs MEDICATIONS: Flagyl 500mg q8h Lisinopril 40 mg daily Aspirin 81 mg daily Lipitor 20 mg daily Metformin 1000 mg by mouth twice daily Lantus 10 units subcutaneous daily Percocet 1-2 tabs q4-6h prn SUBJECTIVE: Patient states feels better today. Still loose stools, but much less. Still denies abdominal pain, nausea, or chills. Was able to sleep well last night. No CP, SOB, diaphoresis, dysuria, lightheadedness. Pain adequately controlled. VITAL SIGNS: Temperature 98.1F, pulse 80, respiratory rate of 18, blood pressure 118/64, pulse ox 98% on room air PHYSICAL EXAMINATION: GENERAL: Well nourished, well developed, sitting up in WC, no acute distress. HEENT: Atraumatic. No facial droop. PERRL, EOMI CARDIOVASCULAR: S1, S2, regular rate. No right lower limb edema or calf tenderness. LUNGS: Clear to auscultation bilaterally, no wheezing rhonchi or rales. ABDOMEN: Soft, nontender, nondistended. Normoactive bowel sounds throughout. MUSCULOSKELETAL: MMT: 5/5 strength right lower limb in all major muscle groups , 5/5 left hip flexors, 5/5 left knee extension. NEUROLOGICAL: Alert and oriented x 3. Answers all questions appropriately. Able to follow commands without difficulty. SKIN: Left residual limb, with dressing not removed (last checked 04/22/16, C/I no pus or significant erythema; right silva sore/ulceration, mild surrounding erythema ~same as admission. Chronic venous stasis changes right leg. LABORATORY DATA: 04/23/16: reviewed, see below 04/22/16: stool +c.diff Blood Cx x 2 04/21/16: NGTD 04/03/2016: WBC count 14, hemoglobin 11.5, platelets 447, glucose 119, BUN/ creatinine: 13/0.8. In 1, ESR 105, lactic acid 2.5 IMAGING: Venous insufficiency exam 04/06/2016, no evidence of DVT left side. ASSESSMENT AND PLAN: 1. 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 S/p course abx. Wound care daily. Will arrange follow-up appointment with Dr. Ríos soon after discharge for staple removal. Patient making progress functionally. Continue daily physical and occupational therapy. Rehabilitation nursing for bladder, bowel, medication management as well as wound care. 2. C. diff colitis: Responding to treatment. Continue Flagyl (d#2/) 3. Hypertension: Improved control. S/p addition of Norvasc last week. Continue Lisinopril current dose. Further adjustments if needed. 4. Diabetes mellitus, insulin-dependent: improved BG today. Continue metformin 1000 mg twice a day along with detemir 10 units subcutaneous daily. Insulin sliding scale before meals and at bedtime. Adjustments as indicated. 5. Peripheral vascular disease: Continue aspirin 81 mg daily, continue Lipitor 20 mg daily at bedtime. 6. Diet/malnutrition: Prealbumin remains low. Maybe 2nd infection. Tx as above. Continue Glucerna. Maintain patient on a carbohydrate consistent diet. 7. Insomnia: Recurrent 2nd diarrhea. 8. Cough: Resolved. / Vital Signs Vital Sign - Last 24 Hours 04/22/16 04/22/16 04/22/16 04/22/16 14:00 20:00 20:00 21:44 Temp 98.2 98.1 Pulse 85 80 84 Resp 18 18 B/P 116/61 133/76 131/78 Pulse Ox 92 96 O2 Delivery Room Air Room Air Room Air 04/23/16 04/23/16 06:00 08:30 Temp 98.1 Pulse 80 Resp 18 B/P 118/64 Pulse Ox 98 O2 Delivery Room Air Room Air Laboratory Data CBC/BMP Laboratory Tests 04/23/16 06:21 Calcium Level 8.0 L, Red Blood Count 4.26 L, Mean Corpuscular Volume 87.0, Mean Corpuscular Hemoglobin 27.6, Mean Corpuscular Hemoglobin Concent 31.8 L, Red Cell Distribution Width 16.3 H, Neutrophils (%) (Auto) , Lymphocytes (%) (Auto) , Monocytes (%) (Auto) , Eosinophils (%) (Auto) , Basophils (%) (Auto) , Neutrophils # (Auto) , Lymphocytes # (Auto) , Monocytes # (Auto) , Eosinophils # (Auto) , Basophils # (Auto) Labs 24H Laboratory Tests 2 04/22/16 16:20: Bedside Glucose (Misc Panel) 139H 04/22/16 19:31: Bedside Glucose (Misc Panel) 126H 04/23/16 06:21: Anion Gap 7L, White Blood Count 14.2H, Red Blood Count 4.26L, Hemoglobin 11.8L, Hematocrit 37.0L, Mean Corpuscular Volume 87.0, Mean Corpuscular Hemoglobin 27.6 , Mean Corpuscular Hemoglobin Concent 31.8L, Red Cell Distribution Width 16.3H, Platelet Count 330, Neutrophils (%) (Auto) , Lymphocytes (%) (Auto) , Monocytes (%) (Auto) , Eosinophils (%) (Auto) , Basophils (%) (Auto) , Neutrophils # (Auto ) , Lymphocytes # (Auto) , Monocytes # (Auto) , Eosinophils # (Auto) , Basophils # (Auto) , C-Reactive Protein, Quantitative < 0.30, Blood Urea Nitrogen 11, Creatinine 0.70, Sodium Level 142, Potassium Level 3.6, Chloride Level 109H, Carbon Dioxide Level 26, Calcium Level 8.0L, Eosinophils (Manual) 13H, Erythrocyte Sedimentation Rate 25H, Glomerular Filtration Rate > 60.0, Large Unclassified Cells # , Large Unclassified Cells % , Lymphocytes (Manual) 32, Monocytes (Manual) 1, Neutrophils 54, Platelet Estimate NORMAL, Red Blood Cell Morphology NORMAL FSBS Laboratory Tests Test 04/22/16 16:20 04/22/16 19:31 Range/Units Bedside Glucose (Misc Panel) 139 126 70-105 MG/DL Microbiology Microbiology 04/21/16 Blood Culture - Preliminary, Resulted No Growth after 48 hours. All Specime... 04/21/16 Blood Culture - Preliminary, Resulted No Growth after 48 hours. All Specime... 04/22/16 Clostridium difficile (PCR) - Final, Complete Allergies Allergies: Coded Allergies: No Known Allergies (Unverified , 06/30/15) Current Medications Current Medications Current Medications Acetaminophen (Tylenol Tab) 650 mg Q4HP PRN PO MILD PAIN (PS 1-4) Last administered on 04/20/16t 06:38; Start 04/15/16 at 14:00; Stop 05/15/16 at 13:59 Amlodipine Besylate (Norvasc) 5 mg QPM PO Last administered on 04/22/16 21:44; Start 04/17/16 at 21:00; Stop 05/17/16 at 20:59 Amoxicillin/ Clavulanate Potassium (Augmentin Es 600mg/5ml Susp.) 1,000 mg Q12H PO Last administered on 04/22/16 09:35; Start 04/15/16 at 21:00; Stop 04/22/16 at 10:16; Status DC Atorvastatin Calcium (Lipitor) 20 mg QHS PO Last administered on 04/22/16 21:44 ; Start 04/15/16 at 21:00; Stop 05/15/16 at 20:59 Dextrose (Dextrose 50%) 25 ml ASDIRECTED PRN IV SEE LABEL COMMENTS; Start at 14:00; Stop 05/15/16 at 13:59 Docusate Sodium (Colace) 100 mg BID PO Last administered on 04/18/16 10:22; Start 04/15/16 at 21:00; Stop 04/22/16 at 10:17; Status DC Glucagon (Glucagon) 1 mg ASDIRECTED PRN SC SEE LABEL COMMENTS; Start 04/15/16 at 14:00; Stop 05/15/16 at 13:59 Glucose (Glucose) 16 GM ASDIRECTED PRN PO SEE LABEL COMMENTS; Start 04/15/16 at 14:00; Stop 05/15/16 at 13:59 Heparin Sodium (Porcine) (Heparin) 5,000 units Q8H SC Last administered on 06:31; Start 04/15/16 at 22:00; Stop 04/25/16 at 21:59 Home Med (Med Rec Complete!) ASDIRECTED XX ; Start 04/15/16 at 18:15; Stop at 18:16; Status DC Insulin Detemir (Levemir Insulin) 10 units DAILY SC Last administered on 08:38; Start 04/16/16 at 09:00; Stop 05/16/16 at 08:59 Insulin Human Lispro (HumaLOG INSULIN) See Protocol Table AC SC Last administered on 04/23/16 08:33; Start 04/15/16 at 17:30; Stop 05/15/16 at 17:29 Insulin Human Lispro (HumaLOG INSULIN) See Protocol Table QHS SC ; Start at 21:00; Stop 05/15/16 at 20:59 Lactobacillus Acidophilus (Bacid) 1 ea BID PO Last administered on 04/23/16 08: 34; Start 04/15/16 at 21:00; Stop 05/15/16 at 20:59 Lisinopril (Prinivil) 30 mg DAILY PO ; Start 04/16/16 at 09:00; Stop 04/16/16 at 09:00; Status DC Lisinopril (Prinivil) 40 mg DAILY PO Last administered on 04/23/16 08:36; Start 04/16/16 at 09:00; Stop 05/16/16 at 08:59 Magnesium Hydroxide (Milk Of Magnesia) 30 ml DAILYPRN PRN PO CONSTIPATION; Start 04/15/16 at 14:00; Stop 05/15/16 at 13:59 Metformin HCl (Glucophage) 1,000 mg BID@08,18 PO Last administered on 04/23/16 08:34; Start 04/15/16 at 18:00; Stop 05/15/16 at 17:59 Metronidazole (Flagyl) 500 mg Q8H PO Last administered on 04/23/16 06:31; Start 04/22/16 at 06:00; Stop 04/29/16 at 05:59 Oxycodone/ Acetaminophen (Percocet 5mg/ 325mg Tablet) 1 tab Q4HP PRN PO MODERATE PAIN (PS 6-7) Last administered on 04/16/16 08:13; Start 04/15/16 at 14: 00; Stop 04/28/16 at 13:59 Oxycodone/ Acetaminophen (Percocet 5mg/ 325mg Tablet) 2 tab Q8HP PRN PO SEVERE PAIN (PS 8-10); Start 04/15/16 at 14:00; Stop 04/28/16 at 13:59 Pantoprazole Sodium (Protonix) 40 mg DAILY PO Last administered on 04/23/16 08: 34; Start 04/16/16 at 09:00; Stop 05/16/16 at 08:59 Polyethylene Glycol (Miralax) 1 pkt DAILY PRN PO CONSTIPATION; Start 04/15/16 at 14:00; Stop 05/15/16 at 13:59 Senna (Senokot) 1 tab QHS PO ; Start 04/15/16 at 21:00; Stop 04/22/16 at 10:17; Status DC FRANCES MIRANDA MD Apr 23, 2016 11:29
[2016-04-23 15:15] VITALS: BP 131/71
[2016-04-23 20:00] VITALS: BP 106/71
[2016-04-23] MEDS: ATORVASTATIN 20 MG TAB PO SCH (21:51)
[2016-04-23] MEDS: amLODIPine 5 MG TAB PO SCH (21:52)
[2016-04-24] MEDS: HEPARIN SOD (PORCINE) 5000 UNITS/ML VIAL SC SCH ×3 (05:53→21:44)
[2016-04-24] MEDS: metroNIDAZOLE (FLAGYL) 500 MG TAB PO SCH ×3 (05:53→21:44)
[2016-04-24 06:00] VITALS: BP 137/89
[2016-04-24 07:08] LABS: BASO % 0.2 % (0.0-1.0); EOS # 3.2 K/mm3 (0.0-0.50); EOS % 22.4 % (0.0-3.0); LARGE UNSTAINED CELL # 0.3 K/mm3 (0.0-0.4); LARGE UNSTAINED CELL % 2.4 % (0.0-4.0); LYMPH # 3.8 K/mm3 (1.5-4.5); LYMPH % 23.8 % (24.0-44.0); MEAN CORPUSCULAR HEMOGLOBIN 27.6 pg (27.0-33.0); MEAN CORPUSCULAR HGB CONC 31.7 g/dl (32.0-36.5); MEAN CORPUSCULAR VOLUME 87.2 fl (80.0-96.0); MONO # 0.8 K/mm3 (0.0-0.8); MONO % 5.3 % (0.0-5.0); NEUTROPHILS # 6.6 K/mm3 (1.8-7.7); NEUTROPHILS % 45.9 % (36.0-66.0); PLATELET COUNT, AUTOMATED 340 k/mm3 (150-450); RED CELL DISTRIBUTION WIDTH 16.4 % (11.5-14.5); WHITE BLOOD COUNT 14.3 K/mm3 (4.0-10.0)
[2016-04-24 07:27] LABS: ANION GAP 9 MEQ/L (8-16); BLOOD UREA NITROGEN 10 MG/DL (7-18); CALCIUM LEVEL 8.8 MG/DL (8.5-10.1); CARBON DIOXIDE LEVEL 25 MEQ/L (21-32); CHLORIDE LEVEL 110 MEQ/L (98-107); CREATININE FOR GFR 0.62 MG/DL (0.70-1.30); GLOMERULAR FILTRATION RATE > 60.0 (>56); GLUCOSE, FASTING 107 MG/DL (70-105); SODIUM LEVEL 144 MEQ/L (136-145)
[2016-04-24] MEDS: HumaLOG INSULIN (NovoLOG) PER UNIT SC SCH ×4 (07:30→21:44)
[2016-04-24 08:22] LABS: ERYTHROCYTE SEDIMENTATION RATE 28 mm/hr (0-20)
[2016-04-24] MEDS: PANTOPRAZOLE 40MG TAB (PROTONIX) PO SCH (09:09)
[2016-04-24] MEDS: LISINOPRIL 40 MG TAB PO SCH (09:09)
[2016-04-24] MEDS: metFORMIN (GLUCOPHAGE) 1000 MG TABLET PO SCH ×2 (09:09→17:18)
[2016-04-24] MEDS: LACTOBACILLUS ACIDOPHILUS CAP (BACID) PO SCH ×2 (09:09→21:44)
[2016-04-24] MEDS: LEVEMIR (INSULIN DETEMIR) 1 UNITS/0.01ML SC SCH (09:10)
--- NOTE | 2016-04-24 11:29 | IPNPDOC ---
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 Ríos IDENTIFICATION STATEMENT: Patient is a 51-year-old gentleman status post left below the knee amputation admitted for comprehensive integrated inpatient rehabilitation. PAST MEDICAL HISTORY: Hypertension Insulin-dependent diabetes mellitus Dyslipidemia Cellulitis PAST SURGICAL HISTORY: Left great toe amputation ALLERGIES: Sulfa drugs MEDICATIONS: Flagyl 500mg q8h Lisinopril 40 mg daily Aspirin 81 mg daily Lipitor 20 mg daily Metformin 1000 mg by mouth twice daily Lantus 10 units subcutaneous daily Percocet 1-2 tabs q4-6h prn SUBJECTIVE: Patient states ok. Still has loose stools, but less. Denies abdominal pain, nausea, or chills. No CP, SOB, diaphoresis, dysuria, lightheadedness. Pain adequately controlled. VITAL SIGNS: Temperature 96.6F, pulse 77, respiratory rate of 18, blood pressure 137/89, pulse ox 96% on room air PHYSICAL EXAMINATION: GENERAL: Well nourished, well developed, sitting up in bed, no acute distress. HEENT: Atraumatic. PERRL, EOMI CARDIOVASCULAR: S1, S2, regular rate. No right lower limb edema or calf tenderness. LUNGS: Clear to auscultation bilaterally, no wheezing rhonchi or rales. ABDOMEN: Soft, nontender, nondistended. Normoactive bowel sounds throughout. MUSCULOSKELETAL: MMT: 5/5 strength right lower limb in all major muscle groups , 5/5 left hip flexors, 5/5 left knee extension. NEUROLOGICAL: Alert and oriented x 3. Answers all questions appropriately. Able to follow commands without difficulty. SKIN: Left residual limb, with dressing not removed (last checked 04/23/16, C/I no pus or significant erythema; right silva sores/ulceration, mild surrounding erythema ~same as admission. Chronic venous stasis changes right leg. LABORATORY DATA: 04/24/16: reviewed, see below 04/22/16: stool +c.diff Blood Cx x 2 04/21/16: NGTD 04/03/2016: WBC count 14, hemoglobin 11.5, platelets 447, glucose 119, BUN/ creatinine: 13/0.8. In 1, ESR 105, lactic acid 2.5 IMAGING: Venous insufficiency exam 04/06/2016, no evidence of DVT left side. ASSESSMENT AND PLAN: 1. 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 S/p course abx. Wound care daily. Needs follow-up appointment with Dr. Ríos soon after discharge for staple removal. Patient making progress functionally. Continue daily physical and occupational therapy. Rehabilitation nursing for bladder, bowel, medication management as well as wound care. 2. C. diff colitis: Responding to treatment, but still has diarrhea. Continue Flagyl (d#04/28) 3. Hypertension: Improved control. S/p addition of Norvasc last week. Continue Lisinopril current dose. Further adjustments if needed. 4. Diabetes mellitus, insulin-dependent: improved BG. Continue metformin 1000 mg twice a day along with detemir 10 units subcutaneous daily. Insulin sliding scale before meals and at bedtime. Adjustments as indicated. 5. Peripheral vascular disease: Continue aspirin 81 mg daily, continue Lipitor 20 mg daily at bedtime. 6. Diet/malnutrition: Prealbumin low. Continue Glucerna. Maintain patient on a carbohydrate consistent diet. 7. Insomnia: Recurrent 2nd diarrhea but resolving 8. Cough: Resolved. / Vital Signs Vital Sign - Last 24 Hours 04/23/16 04/23/16 04/23/16 04/23/16 15:15 20:00 20:00 21:52 Temp 97.8 98.0 Pulse 92 92 77 Resp 18 18 B/P 131/71 106/71 121/65 Pulse Ox 97 95 O2 Delivery Room Air Room Air Room Air 04/24/16 04/24/16 06:00 09:00 Temp 96.6 Pulse 77 Resp 18 B/P 137/89 Pulse Ox 96 O2 Delivery Room Air Room Air Laboratory Data CBC/BMP Laboratory Tests 04/24/16 06:44 Calcium Level 8.8, Red Blood Count 4.21 L, Mean Corpuscular Volume 87.2, Mean Corpuscular Hemoglobin 27.6, Mean Corpuscular Hemoglobin Concent 31.7 L, Red Cell Distribution Width 16.4 H, Neutrophils (%) (Auto) 45.9, Lymphocytes (%) ( Auto) 23.8 L, Monocytes (%) (Auto) 5.3 H, Eosinophils (%) (Auto) 22.4 H, Basophils (%) (Auto) 0.2, Neutrophils # (Auto) 6.6, Lymphocytes # (Auto) 3.8, Monocytes # (Auto) 0.8, Eosinophils # (Auto) 3.2 H, Basophils # (Auto) 0.0 Labs 24H Laboratory Tests 2 04/23/16 11:30: Bedside Glucose (Misc Panel) 95 04/23/16 16:45: Bedside Glucose (Misc Panel) 115H 04/23/16 20:47: Bedside Glucose (Misc Panel) 113H 04/24/16 06:23: Bedside Glucose (Misc Panel) 97 04/24/16 06:44: Anion Gap 9, White Blood Count 14.3H, Red Blood Count 4.21L, Hemoglobin 11.6L, Hematocrit 36.7L, Mean Corpuscular Volume 87.2, Mean Corpuscular Hemoglobin 27.6 , Mean Corpuscular Hemoglobin Concent 31.7L, Red Cell Distribution Width 16.4H, Platelet Count 340, Neutrophils (%) (Auto) 45.9, Lymphocytes (%) (Auto) 23.8L, Monocytes (%) (Auto) 5.3H, Eosinophils (%) (Auto) 22.4H, Basophils (%) (Auto) 0.2, Neutrophils # (Auto) 6.6, Lymphocytes # (Auto) 3.8, Monocytes # (Auto) 0.8 , Eosinophils # (Auto) 3.2H, Basophils # (Auto) 0.0, C-Reactive Protein, Quantitative < 0.30, Blood Urea Nitrogen 10, Creatinine 0.62L, Sodium Level 144 , Potassium Level 4.0, Chloride Level 110H, Carbon Dioxide Level 25, Calcium Level 8.8, Erythrocyte Sedimentation Rate 28H, Glomerular Filtration Rate > 60.0 , Large Unclassified Cells # 0.3, Large Unclassified Cells % 2.4 FSBS Laboratory Tests Test 04/23/16 11:30 04/23/16 16:45 04/23/16 20:47 04/24/16 06:23 Range/Units Bedside Glucose (Misc Panel) 95 115 113 97 70-105 MG/DL Microbiology Microbiology 04/21/16 Blood Culture - Preliminary, Resulted No Growth after 72 hours. All specime... 04/21/16 Blood Culture - Preliminary, Resulted No Growth after 72 hours. All specime... 04/22/16 Clostridium difficile (PCR) - Final, Complete Allergies Allergies: Coded Allergies: No Known Allergies (Unverified , 06/30/15) Current Medications Current Medications Current Medications Acetaminophen (Tylenol Tab) 650 mg Q4HP PRN PO MILD PAIN (PS 1-4) Last administered on 04/20/16 06:38; Start 04/15/16 at 14:00; Stop 05/15/16 at 13:59 Amlodipine Besylate (Norvasc) 5 mg QPM PO Last administered on 04/23/16 21:52; Start 04/17/16 at 21:00; Stop 05/17/16 at 20:59 Amoxicillin/ Clavulanate Potassium (Augmentin Es 600mg/5ml Susp.) 1,000 mg Q12H PO Last administered on 04/22/16 09:35; Start 04/15/16 at 21:00; Stop 04/22/16 at 10:16; Status DC Atorvastatin Calcium (Lipitor) 20 mg QHS PO Last administered on 04/23/16 21:51 ; Start 04/15/16 at 21:00; Stop 05/15/16 at 20:59 Dextrose (Dextrose 50%) 25 ml ASDIRECTED PRN IV SEE LABEL COMMENTS; Start at 14:00; Stop 05/15/16 at 13:59 Docusate Sodium (Colace) 100 mg BID PO Last administered on 04/18/16 10:22; Start 04/15/16 at 21:00; Stop 04/22/16 at 10:17; Status DC Glucagon (Glucagon) 1 mg ASDIRECTED PRN SC SEE LABEL COMMENTS; Start 04/15/16 at 14:00; Stop 05/15/16 at 13:59 Glucose (Glucose) 16 GM ASDIRECTED PRN PO SEE LABEL COMMENTS; Start 04/15/16 at 14:00; Stop 05/15/16 at 13:59 Heparin Sodium (Porcine) (Heparin) 5,000 units Q8H SC Last administered on 04/24 05:53; Start 04/15/16 at 22:00; Stop 04/25/16 at 21:59 Home Med (Med Rec Complete!) ASDIRECTED XX ; Start 04/15/16 at 18:15; Stop at 18:16; Status DC Insulin Detemir (Levemir Insulin) 10 units DAILY SC Last administered on 09:10; Start 04/16/16 at 09:00; Stop 05/16/16 at 08:59 Insulin Human Lispro (HumaLOG INSULIN) See Protocol Table AC SC Last administered on 04/23/16 17:17; Start 04/15/16 at 17:30; Stop 05/15/16 at 17:29 Insulin Human Lispro (HumaLOG INSULIN) See Protocol Table QHS SC ; Start at 21:00; Stop 05/15/16 at 20:59 Lactobacillus Acidophilus (Bacid) 1 ea BID PO Last administered on 04/24/16 09 :09; Start 04/15/16 at 21:00; Stop 05/15/16 at 20:59 Lisinopril (Prinivil) 30 mg DAILY PO ; Start 04/16/16 at 09:00; Stop 04/16/16 at 09:00; Status DC Lisinopril (Prinivil) 40 mg DAILY PO Last administered on 04/24/16 09:09; Start 04/16/16 at 09:00; Stop 05/16/16 at 08:59 Magnesium Hydroxide (Milk Of Magnesia) 30 ml DAILYPRN PRN PO CONSTIPATION; Start 04/15/16 at 14:00; Stop 05/15/16 at 13:59 Metformin HCl (Glucophage) 1,000 mg BID@08,18 PO Last administered on 09:09; Start 04/15/16 at 18:00; Stop 05/15/16 at 17:59 Metronidazole (Flagyl) 500 mg Q8H PO Last administered on 04/24/16 05:53; Start 04/22/16 at 06:00; Stop 04/29/16 at 05:59 Oxycodone/ Acetaminophen (Percocet 5mg/ 325mg Tablet) 1 tab Q4HP PRN PO MODERATE PAIN (PS 6-7) Last administered on 04/16/16 08:13; Start 04/15/16 at 14: 00; Stop 04/28/16 at 13:59 Oxycodone/ Acetaminophen (Percocet 5mg/ 325mg Tablet) 2 tab Q8HP PRN PO SEVERE PAIN (PS 8-10); Start 04/15/16 at 14:00; Stop 04/28/16 at 13:59 Pantoprazole Sodium (Protonix) 40 mg DAILY PO Last administered on 04/24/16t 09 :09; Start 04/16/16 at 09:00; Stop 05/16/16 at 08:59 Polyethylene Glycol (Miralax) 1 pkt DAILY PRN PO CONSTIPATION; Start 04/15/16 at 14:00; Stop 05/15/16 at 13:59 Senna (Senokot) 1 tab QHS PO ; Start 04/15/16 at 21:00; Stop 04/22/16 at 10:17; Status DC FRANCES MIRANDA MD Apr 24, 2016 11:29
[2016-04-24 14:00] VITALS: BP 145/74
[2016-04-24 20:00] VITALS: BP 152/80
[2016-04-24] MEDS: amLODIPine 5 MG TAB PO SCH (21:44)
[2016-04-24] MEDS: ATORVASTATIN 20 MG TAB PO SCH (21:44)
[2016-04-25 06:00] VITALS: BP 149/87
[2016-04-25] MEDS: metroNIDAZOLE (FLAGYL) 500 MG TAB PO SCH ×3 (06:46→21:18)
[2016-04-25] MEDS: HEPARIN SOD (PORCINE) 5000 UNITS/ML VIAL SC SCH ×3 (06:47→21:17)
[2016-04-25 06:48] LABS: BASO % 0.3 % (0.0-1.0); EOS % 31.3 % (0.0-3.0); LARGE UNSTAINED CELL # 0.4 K/mm3 (0.0-0.4); LARGE UNSTAINED CELL % 2.3 % (0.0-4.0); LYMPH # 3.3 K/mm3 (1.5-4.5); LYMPH % 18.7 % (24.0-44.0); MEAN CORPUSCULAR HEMOGLOBIN 28.2 pg (27.0-33.0); MEAN CORPUSCULAR HGB CONC 32.4 g/dl (32.0-36.5); MEAN CORPUSCULAR VOLUME 86.9 fl (80.0-96.0); MONO % 6.2 % (0.0-5.0); NEUTROPHILS # 6.6 K/mm3 (1.8-7.7); NEUTROPHILS % 41.2 % (36.0-66.0); PLATELET COUNT, AUTOMATED 303 k/mm3 (150-450); RED CELL DISTRIBUTION WIDTH 16.2 % (11.5-14.5); WHITE BLOOD COUNT 15.9 K/mm3 (4.0-10.0)
[2016-04-25 06:57] LABS: ANION GAP 9 MEQ/L (8-16); BLOOD UREA NITROGEN 8 MG/DL (7-18); CARBON DIOXIDE LEVEL 27 MEQ/L (21-32); CHLORIDE LEVEL 108 MEQ/L (98-107); CREATININE FOR GFR 0.59 MG/DL (0.70-1.30); GLOMERULAR FILTRATION RATE > 60.0 (>56); GLUCOSE, FASTING 122 MG/DL (70-105); POTASSIUM SERUM 4.1 MEQ/L (3.5-5.1); SODIUM LEVEL 144 MEQ/L (136-145)
[2016-04-25] MEDS: metFORMIN (GLUCOPHAGE) 1000 MG TABLET PO SCH ×2 (07:49→17:45)
[2016-04-25] MEDS: HumaLOG INSULIN (NovoLOG) PER UNIT SC SCH ×4 (07:49→21:19)
[2016-04-25] MEDS: PANTOPRAZOLE 40MG TAB (PROTONIX) PO SCH (09:27)
[2016-04-25] MEDS: LISINOPRIL 40 MG TAB PO SCH (09:27)
[2016-04-25] MEDS: LACTOBACILLUS ACIDOPHILUS CAP (BACID) PO SCH ×2 (09:27→21:18)
[2016-04-25] MEDS: LEVEMIR (INSULIN DETEMIR) 1 UNITS/0.01ML SC SCH (09:28)
[2016-04-25 14:00] VITALS: BP 145/70
[2016-04-25 20:00] VITALS: BP 141/79
[2016-04-25] MEDS: ATORVASTATIN 20 MG TAB PO SCH (21:17)
[2016-04-25] MEDS: amLODIPine 5 MG TAB PO SCH (21:18)
[2016-04-26 06:00] VITALS: BP 134/67
[2016-04-26 06:33] LABS: BASO % 0.2 % (0.0-1.0); EOS # 5.4 K/mm3 (0.0-0.50); EOS % 37.1 % (0.0-3.0); LARGE UNSTAINED CELL # 0.5 K/mm3 (0.0-0.4); LARGE UNSTAINED CELL % 3.1 % (0.0-4.0); LYMPH # 2.9 K/mm3 (1.5-4.5); LYMPH % 19.8 % (24.0-44.0); MEAN CORPUSCULAR HEMOGLOBIN 27.6 pg (27.0-33.0); MEAN CORPUSCULAR HGB CONC 31.9 g/dl (32.0-36.5); MEAN CORPUSCULAR VOLUME 86.4 fl (80.0-96.0); MONO # 0.7 K/mm3 (0.0-0.8); MONO % 4.7 % (0.0-5.0); NEUTROPHILS # 5.1 K/mm3 (1.8-7.7); NEUTROPHILS % 35.2 % (36.0-66.0); PLATELET COUNT, AUTOMATED 307 k/mm3 (150-450); RED CELL DISTRIBUTION WIDTH 16.1 % (11.5-14.5); WHITE BLOOD COUNT 14.6 K/mm3 (4.0-10.0)
[2016-04-26] MEDS: HEPARIN SOD (PORCINE) 5000 UNITS/ML VIAL SC SCH ×3 (06:33→21:00)
[2016-04-26] MEDS: metroNIDAZOLE (FLAGYL) 500 MG TAB PO SCH ×3 (06:33→21:00)
[2016-04-26 06:58] LABS: ANION GAP 10 MEQ/L (8-16); BLOOD UREA NITROGEN 6 MG/DL (7-18); CARBON DIOXIDE LEVEL 26 MEQ/L (21-32); CHLORIDE LEVEL 106 MEQ/L (98-107); CREATININE FOR GFR 0.61 MG/DL (0.70-1.30); GLOMERULAR FILTRATION RATE > 60.0 (>56); GLUCOSE, FASTING 104 MG/DL (70-105); POTASSIUM SERUM 3.8 MEQ/L (3.5-5.1); SODIUM LEVEL 142 MEQ/L (136-145)
[2016-04-26 07:09] LABS: ERYTHROCYTE SEDIMENTATION RATE 23 mm/hr (0-20)
[2016-04-26] MEDS: metFORMIN (GLUCOPHAGE) 1000 MG TABLET PO SCH ×2 (08:10→18:02)
[2016-04-26] MEDS: LACTOBACILLUS ACIDOPHILUS CAP (BACID) PO SCH ×2 (08:10→20:55)
[2016-04-26] MEDS: HumaLOG INSULIN (NovoLOG) PER UNIT SC SCH ×4 (08:11→20:55)
[2016-04-26] MEDS: PANTOPRAZOLE 40MG TAB (PROTONIX) PO SCH (08:11)
[2016-04-26] MEDS: LISINOPRIL 40 MG TAB PO SCH (08:11)
[2016-04-26] MEDS: LEVEMIR (INSULIN DETEMIR) 1 UNITS/0.01ML SC SCH (08:12)
[2016-04-26 14:00] VITALS: BP 130/70
[2016-04-26 20:00] VITALS: BP 111/58
[2016-04-26] MEDS: ATORVASTATIN 20 MG TAB PO SCH (20:55)
[2016-04-26] MEDS: amLODIPine 5 MG TAB PO SCH (20:55)
[2016-04-27 06:00] VITALS: BP 143/91
[2016-04-27] MEDS: HEPARIN SOD (PORCINE) 5000 UNITS/ML VIAL SC SCH ×3 (06:23→21:43)
[2016-04-27] MEDS: metroNIDAZOLE (FLAGYL) 500 MG TAB PO SCH ×3 (06:23→21:43)
[2016-04-27 07:26] LABS: ANION GAP 8 MEQ/L (8-16); BASO % 0.3 % (0.0-1.0); BLOOD UREA NITROGEN 9 MG/DL (7-18); CARBON DIOXIDE LEVEL 28 MEQ/L (21-32); CHLORIDE LEVEL 106 MEQ/L (98-107); CREATININE FOR GFR 0.62 MG/DL (0.70-1.30); EOS # 6.6 K/mm3 (0.0-0.50); EOS % 40.1 % (0.0-3.0); GLOMERULAR FILTRATION RATE > 60.0 (>56); GLUCOSE, FASTING 125 MG/DL (70-105); LARGE UNSTAINED CELL # 0.5 K/mm3 (0.0-0.4); LARGE UNSTAINED CELL % 2.8 % (0.0-4.0); LYMPH # 3.5 K/mm3 (1.5-4.5); LYMPH % 18.3 % (24.0-44.0); MEAN CORPUSCULAR HEMOGLOBIN 28.7 pg (27.0-33.0); MEAN CORPUSCULAR HGB CONC 32.9 g/dl (32.0-36.5); MEAN CORPUSCULAR VOLUME 87.2 fl (80.0-96.0); MONO # 0.8 K/mm3 (0.0-0.8); NEUTROPHILS # 5.5 K/mm3 (1.8-7.7); NEUTROPHILS % 33.5 % (36.0-66.0); PLATELET COUNT, AUTOMATED 288 k/mm3 (150-450); RED CELL DISTRIBUTION WIDTH 16.1 % (11.5-14.5); SODIUM LEVEL 142 MEQ/L (136-145); WHITE BLOOD COUNT 16.4 K/mm3 (4.0-10.0)
[2016-04-27] MEDS: metFORMIN (GLUCOPHAGE) 1000 MG TABLET PO SCH ×2 (07:58→17:45)
[2016-04-27] MEDS: HumaLOG INSULIN (NovoLOG) PER UNIT SC SCH ×4 (07:58→20:07)
[2016-04-27] MEDS: LEVEMIR (INSULIN DETEMIR) 1 UNITS/0.01ML SC SCH (09:11)
[2016-04-27] MEDS: PANTOPRAZOLE 40MG TAB (PROTONIX) PO SCH (09:12)
[2016-04-27] MEDS: LACTOBACILLUS ACIDOPHILUS CAP (BACID) PO SCH ×2 (09:12→20:07)
[2016-04-27] MEDS: LISINOPRIL 40 MG TAB PO SCH (09:12)
--- NOTE | 2016-04-27 11:51 | IPNPDOC ---
Vice Principal Progress Note PROGRESS NOTE DATE OF ADMISSION: 04/15/2016 DATE OF SERVICE: 04/27/2016 Vascular Surgeon: Dr. Ríos IDENTIFICATION STATEMENT: Patient is a 51-year-old gentleman status post left below the knee amputation admitted for comprehensive integrated inpatient rehabilitation. PAST MEDICAL HISTORY: Hypertension Insulin-dependent diabetes mellitus Dyslipidemia Cellulitis PAST SURGICAL HISTORY: Left great toe amputation ALLERGIES: Sulfa drugs MEDICATIONS: Flagyl 500mg q8h Lisinopril 40 mg daily Aspirin 81 mg daily Lipitor 20 mg daily Metformin 1000 mg by mouth twice daily Lantus 10 units subcutaneous daily Percocet 1-2 tabs q4-6h prn SUBJECTIVE: Patient w/o complaints. States stools are formed now. Denies abdominal pain, nausea, or chills. Denies any CP or SOB. When asked about cough , states nothing too much. No diaphoresis, dysuria, lightheadedness. Pain adequately controlled. VITAL SIGNS: Temperature 99.0F, pulse 79, respiratory rate of 18, blood pressure 143/91, pulse ox 95% on room air PHYSICAL EXAMINATION: GENERAL: Well nourished, well developed, sitting up in bed, no acute distress. HEENT: Atraumatic. PERRL, EOMI CARDIOVASCULAR: S1, S2, regular rate. No right lower limb edema or calf tenderness. LUNGS: Clear to auscultation bilaterally, no wheezing rhonchi or rales. ABDOMEN: Soft, nontender, nondistended. Normoactive bowel sounds throughout. MUSCULOSKELETAL: MMT: 5/5 strength right lower limb in all major muscle groups , 5/5 left hip flexors, 5/5 left knee extension. NEUROLOGICAL: Alert and oriented x 3. Answers all questions appropriately. Able to follow commands without difficulty. SKIN: Left residual limb, C/D/I, no pus or significant erythema; right silva sores/ulceration, moderate surrounding erythema (increased), size of central lesion ~ same, more distal lesion with scan (~same). Chronic venous stasis changes right leg. LABORATORY DATA: 04/27/16: reviewed, see below 04/22/16: stool +c.diff Blood Cx x 2 04/21/16: NGTD 04/03/2016(from [place] [facility]): WBC count 14, hemoglobin 11.5, platelets 447, glucose 119, BUN/creatinine: 13/0.8. In 1, ESR 105, lactic acid 2.5 Stool + c.diff BCx x 2: NG x 5d IMAGING: CXR 04/27/16: pending Venous insufficiency exam 04/06/2016, no evidence of DVT left side. ASSESSMENT AND PLAN: 1. 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 S/p multiple courses abx prior to admission here, most recent at [facility] was IV Unasyn+Vanco, discharged to us on Augmentin ES. Needs follow-up appointment with Dr. Ríos after discharge. Patient making progress functionally. Initial d /c date extended 2nd c. diff. Continue daily physical and occupational therapy. Rehabilitation nursing for bladder, bowel, medication management as well as wound care. 2. C. diff colitis: Responding to treatment as stools now formed. Continue Flagyl (d#/) 3. Leukocytosis: Recurrent. Concern for right leg cellulitis. As above, most recent abx at [place] [facility] was IV Unasyn+Vanco, discharged to us on Augmentin ES. I have spoken with Dr. Ríos. States patient has been on multiple abx prior to surgery, but unsure if which ones. Discussed my concerns, he stated that they have wound care center and theyll be happy to see him after discharge. Stated its probably ok to remove yisel now. I will obtain ID consult for recommendations. 4. Hypertension: Improved control. S/p addition of Norvasc last week. Continue Lisinopril current dose. Further adjustments if needed. 5. Diabetes mellitus, insulin-dependent: improved BG. Continue metformin 1000 mg twice a day along with detemir 10 units subcutaneous daily. Insulin sliding scale before meals and at bedtime. Adjustments as indicated. 6. Peripheral vascular disease: Continue aspirin 81 mg daily, continue Lipitor 20 mg daily at bedtime. 7. Diet/malnutrition: Prealbumin low. Continue Glucerna. Maintain patient on a carbohydrate consistent diet. 8. Insomnia: Resolved / Vital Signs Vital Sign - Last 24 Hours 04/26/16 04/26/16 04/26/16 04/26/16 14:00 19:29 20:00 20:55 Temp 96.3 97.8 Pulse 85 84 84 Resp 18 18 B/P 130/70 111/58 111/58 Pulse Ox 97 94 O2 Delivery Room Air Room Air Room Air 04/27/16 04/27/16 06:00 09:00 Temp 99.0 Pulse 79 Resp 18 B/P 143/91 Pulse Ox 95 O2 Delivery Room Air Room Air Laboratory Data CBC/BMP Laboratory Tests 04/27/16 06:42 Calcium Level 9.0, Red Blood Count 4.32, Mean Corpuscular Volume 87.2, Mean Corpuscular Hemoglobin 28.7, Mean Corpuscular Hemoglobin Concent 32.9, Red Cell Distribution Width 16.1 H, Neutrophils (%) (Auto) 33.5 L, Lymphocytes (%) (Auto ) 18.3 L, Monocytes (%) (Auto) 5.0, Eosinophils (%) (Auto) 40.1 H, Basophils (% ) (Auto) 0.3, Neutrophils # (Auto) 5.5, Lymphocytes # (Auto) 3.5, Monocytes # ( Auto) 0.8, Eosinophils # (Auto) 6.6 H, Basophils # (Auto) 0.0 Labs 24H Laboratory Tests 2 04/26/16 12:18: Bedside Glucose (Misc Panel) 104 04/26/16 16:23: Bedside Glucose (Misc Panel) 128H 04/26/16 20:43: Bedside Glucose (Misc Panel) 95 04/27/16 06:13: Bedside Glucose (Misc Panel) 111H 04/27/16 06:42: Anion Gap 8, White Blood Count 16.4H, Red Blood Count 4.32, Hemoglobin 12.4L, Hematocrit 37.6L, Mean Corpuscular Volume 87.2, Mean Corpuscular Hemoglobin 28.7 , Mean Corpuscular Hemoglobin Concent 32.9, Red Cell Distribution Width 16.1H, Platelet Count 288, Neutrophils (%) (Auto) 33.5L, Lymphocytes (%) (Auto) 18.3L, Monocytes (%) (Auto) 5.0, Eosinophils (%) (Auto) 40.1H, Basophils (%) (Auto) 0.3 , Neutrophils # (Auto) 5.5, Lymphocytes # (Auto) 3.5, Monocytes # (Auto) 0.8, Eosinophils # (Auto) 6.6H, Basophils # (Auto) 0.0, Blood Urea Nitrogen 9, Creatinine 0.62L, Sodium Level 142, Potassium Level 4.0, Chloride Level 106, Carbon Dioxide Level 28, Calcium Level 9.0, Glomerular Filtration Rate > 60.0, Large Unclassified Cells # 0.5H, Large Unclassified Cells % 2.8 04/27/16 11:29: Bedside Glucose (Misc Panel) 95 FSBS Laboratory Tests Test 04/26/16 12:18 04/26/16 16:23 04/26/16 20:43 04/27/16 06:13 Range/Units Bedside Glucose (Misc Panel) 104 128 95 111 70-105 MG/DL Test 04/27/16 11:29 Range/Units Bedside Glucose (Misc Panel) 95 70-105 MG/DL Microbiology Microbiology 04/21/16 Blood Culture - Final, Complete NO GROWTH AFTER 5 DAYS 04/21/16 Blood Culture - Final, Complete NO GROWTH AFTER 5 DAYS 04/22/16 Clostridium difficile (PCR) - Final, Complete Allergies Allergies: Coded Allergies: No Known Allergies (Unverified , 06/30/15) Current Medications Current Medications Current Medications Acetaminophen (Tylenol Tab) 650 mg Q4HP PRN PO MILD PAIN (PS 1-4) Last administered on 04/20/16 06:38; Start 04/15/16 at 14:00; Stop 05/15/16 at 13:59 Amlodipine Besylate (Norvasc) 5 mg QPM PO Last administered on 04/26/16 20:55 ; Start 04/17/16 at 21:00; Stop 05/17/16 at 20:59 Amoxicillin/ Clavulanate Potassium (Augmentin Es 600mg/5ml Susp.) 1,000 mg Q12H PO Last administered on 04/22/16 09:35; Start 04/15/16 at 21:00; Stop 04/22/16 at 10:16; Status DC Atorvastatin Calcium (Lipitor) 20 mg QHS PO Last administered on 04/26/16 20: 55; Start 04/15/16 at 21:00; Stop 05/15/16 at 20:59 Dextrose (Dextrose 50%) 25 ml ASDIRECTED PRN IV SEE LABEL COMMENTS; Start at 14:00; Stop 05/15/16 at 13:59 Docusate Sodium (Colace) 100 mg BID PO Last administered on 04/18/16 10:22; Start 04/15/16 at 21:00; Stop 04/22/16 at 10:17; Status DC Glucagon (Glucagon) 1 mg ASDIRECTED PRN SC SEE LABEL COMMENTS; Start 04/15/16 at 14:00; Stop 05/15/16 at 13:59 Glucose (Glucose) 16 GM ASDIRECTED PRN PO SEE LABEL COMMENTS; Start 04/15/16 at 14:00; Stop 05/15/16 at 13:59 Heparin Sodium (Porcine) (Heparin) 5,000 units Q8H SC Last administered on 04/27 06:23; Start 04/15/16 at 22:00; Stop 04/29/16 at 21:59 Home Med (Med Rec Complete!) ASDIRECTED XX ; Start 04/15/16 at 18:15; Stop at 18:16; Status DC Insulin Detemir (Levemir Insulin) 10 units DAILY SC Last administered on 09:11; Start 04/16/16 at 09:00; Stop 05/16/16 at 08:59 Insulin Human Lispro (HumaLOG INSULIN) See Protocol Table AC SC Last administered on 04/27/16 07:58; Start 04/15/16 at 17:30; Stop 05/15/16 at 17:29 Insulin Human Lispro (HumaLOG INSULIN) See Protocol Table QHS SC ; Start at 21:00; Stop 05/15/16 at 20:59 Lactobacillus Acidophilus (Bacid) 1 ea BID PO Last administered on 04/27/16 09 :12; Start 04/15/16 at 21:00; Stop 05/15/16 at 20:59 Lisinopril (Prinivil) 30 mg DAILY PO ; Start 04/16/16 at 09:00; Stop 04/16/16 at 09:00; Status DC Lisinopril (Prinivil) 40 mg DAILY PO Last administered on 04/27/16 09:12; Start 04/16/16 at 09:00; Stop 05/16/16 at 08:59 Magnesium Hydroxide (Milk Of Magnesia) 30 ml DAILYPRN PRN PO CONSTIPATION; Start 04/15/16 at 14:00; Stop 05/15/16 at 13:59 Metformin HCl (Glucophage) 1,000 mg BID@08,18 PO Last administered on 07:58; Start 04/15/16 at 18:00; Stop 05/15/16 at 17:59 Metronidazole (Flagyl) 500 mg Q8H PO Last administered on 04/27/16 06:23; Start 04/22/16 at 06:00; Stop 04/29/16 at 05:59 Oxycodone/ Acetaminophen (Percocet 5mg/ 325mg Tablet) 1 tab Q4HP PRN PO MODERATE PAIN (PS 6-7) Last administered on 04/16/16 08:13; Start 04/15/16 at 14: 00; Stop 04/28/16 at 13:59 Oxycodone/ Acetaminophen (Percocet 5mg/ 325mg Tablet) 2 tab Q8HP PRN PO SEVERE PAIN (PS 8-10); Start 04/15/16 at 14:00; Stop 04/28/16 at 13:59 Pantoprazole Sodium (Protonix) 40 mg DAILY PO Last administered on 04/27/16 09 :12; Start 04/16/16 at 09:00; Stop 05/16/16 at 08:59 Polyethylene Glycol (Miralax) 1 pkt DAILY PRN PO CONSTIPATION; Start 04/15/16 at 14:00; Stop 05/15/16 at 13:59 Senna (Senokot) 1 tab QHS PO ; Start 04/15/16 at 21:00; Stop 04/22/16 at 10:17; Status DC FRANCES MIRANDA MD Apr 27, 2016 11:51
[2016-04-27 14:00] VITALS: BP 130/73
--- NOTE | 2016-04-27 15:00 | CR.PDOC ---
[facility] Consultation Consultation HOSPITALIST CONSULT NOTE Date of consult: 04/27/2016 Referring Provider: Dr. Wood Reason for Consult: Elevated white count HPI: 51-year-old male with hypertension, hyperlipidemia, insulin-dependent diabetes mellitus, PVD, who is currently in our inpatient rehabilitation unit after having a BKA performed at [facility] for severe wet gangrene of the left lower limb. Dr. Wood states that while he was here, he began having diarrhea , and was noted to be positive for C. difficile. He has been on Flagyl, and has been improving. He states that although his bowels are still loose, they're more formed and they were, and are decreasing in frequency. The patient is scheduled to be discharged tomorrow, at which time he'll go directly to his surgeon for follow-up, and then will return home. He also will have outpatient wound care scheduled for him. However, Dr. Wood is concerned today, because his white count is 16.4. The patient began being treated for C. difficile, his white count was in the 16th, then it decreased to the 14th, 2 days ago it was back up to 15.9, yesterday was in the 14's, and today is 16 again. She is worried that this represents some other sort of infection that he is not currently being treated for. The patient states that he is currently feeling well, and denies any fever, chills, cough, shortness of breath, urinary symptoms. Past medical history: Hypertension, hyperlipidemia, insulin-dependent diabetes mellitus, PVD Past surgical history: Left great toe amputation, left BKA Family history: Patient states he is unaware of any health problems in his family Social history: The patient currently lives with his father. He denies any tobacco or alcohol use. Allergies: The EMR states that the patient does not have any allergies. This patient corroborates this, and states that he is unaware of any allergies to medications, including sulfa drugs. H&P done upon admission to the rehabilitation unit, however, states that he is allergic to sulfa drugs. Review of systems: General: Negative for fever and chills Eyes: Negative for vision changes and ocular discharge ENT: Negative for sore throat and nose bleed Cardiovascular: Negative for chest pain and palpitations Respiratory: Negative for shortness of breath and cough GI: Negative for nausea, vomiting, constipation. Positive for improving diarrhea Musculoskeletal: Negative for neck and back pain Skin: Positive for chronic wound on his right silva, but negative for any other rashes or other cutaneous findings Neuro: Negative for headache, dizziness, positive for chronic neuropathy of his lower extremity Psych: Negative for depression and suicidal ideation Endocrine:. Negative for Polyuria : Negative for dysuria Heme: Negative for bruising and bleeding Home meds: See below Physical exam: Vital signs: Vital Sign - Last 24 Hours 04/26/16 04/26/16 04/26/16 04/27/16 19:29 20:00 20:55 06:00 Temp 97.8 99.0 Pulse 84 84 79 Resp 18 18 B/P 111/58 111/58 143/91 Pulse Ox 94 95 O2 Delivery Room Air Room Air Room Air 04/27/16 09:00 O2 Delivery Room Air Gen.: awake, alert, no acute distress Eyes: Extraocular movements intact, normal sclera ENT: Moist mucous membranes Cardiovascular: RRR, no murmurs rubs or gallops Lungs: clear to auscultation bilaterally, no rales, rhonchi, or wheeze Abdomen: Soft, NT/ND, normal BS Extremities: left stump and incision are clean and healing well; chronic wound on right silva does not appear to have significant drainage, swelling, or erythema Neuro: alert and oriented 3, normal speech, no focal deficits Psych: Normal mood with congruent affect Labs and radiology: See below White count has been fluctuating. It was approximately 16 upon diagnosis of C. difficile, decreased to 14 for a couple days, increased again to 15.92 days ago , improved slightly yesterday, and is now 16.4 CRP has been within normal limits the entire admission ESR has been decreasing UA and urine culture is pending Blood cultures from April 21 are negative Assessment and plan: 51-year-old male with hypertension, hyperlipidemia, insulin-dependent diabetes mellitus, PVD, who is currently in our inpatient rehabilitation unit after having a BKA performed at [facility] for severe wet gangrene of the left lower limb. He is currently being treated for C. difficile, and has a slight elevation in his white count today. We have been asked to consult on the patient and comment on the elevation in white count, as well as any need for further antibiotics. 1. Elevated white count. At this time, I am not seeing firm evidence that this represents any sort of new infection. The patient's white count has had variety and fluctuation ever since diagnosis of the C. difficile and being started on Flagyl. He reports that his stool is forming more and is occurring less frequently. He also denies any respiratory complaints or urinary complaints. He has been afebrile A UA and urine culture are pending, which we will of course follow up. The chronic wound on his right silva does not appear to be actively infected to me. Given that he is currently being treated for C. difficile, we would want to be very judicious about adding on any other antibiotics. At this time, I would recommend following up the urine studies, and repeating a white count in the morning. If the patient remains afebrile and clinically well, as he has now, and the white count has not increased tomorrow, then I would presume that this elevation in white count simply represents normal fluctuations with daily lab draws. However, if the urine studies show infection , I would of course provide appropriate antibiotics for that. If no source of infection is found, but the leg is concerning tomorrow and the white count goes up, then I would consider discharging the patient on either Bactrim or clindamycin to cover for possible MRSA cellulitis. Dr. Wood tells me that the patient already has outpatient wound care scheduled, and will be following up with his surgeon immediately upon discharge tomorrow. I'm encouraged by the strong follow-up that the patient has. 2. C. difficile diarrhea: The patient has been on Flagyl, and he states that his stool is becoming more formed and decreasing in frequency, he has been afebrile, and his ESR has decreased. I would discharge the patient home to complete at least a 10 day course of Flagyl. DVT prophylaxis: As per the primary team Thank you for this consult. Our physician's assistant professor of psychology, Beryl Rogers, under the supervision of Dr. Tano Soriano, will continue to follow this patient along with you. Vital Signs/I&O Vital Signs Date Time Temp Pulse Resp B/P Pulse Ox O2 Delivery O2 Flow Rate FiO2 04/27/16 09:00 Room Air 04/27/16 06:00 99.0 79 18 143/91 95 I&O- Last 24 Hours up to 6 AM 04/27/16 05:59 Intake Total 1080 ml Output Total 700 ml Balance 380 ml Laboratory Data Labs 24H Laboratory Tests 2 3/12/17 16:23: Bedside Glucose (Misc Panel) 128H 04/26/16 20:43: Bedside Glucose (Misc Panel) 95 04/27/16 06:13: Bedside Glucose (Misc Panel) 111H 04/27/16 06:42: Anion Gap 8, White Blood Count 16.4H, Red Blood Count 4.32, Hemoglobin 12.4L, Hematocrit 37.6L, Mean Corpuscular Volume 87.2, Mean Corpuscular Hemoglobin 28.7 , Mean Corpuscular Hemoglobin Concent 32.9, Red Cell Distribution Width 16.1H, Platelet Count 288, Neutrophils (%) (Auto) 33.5L, Lymphocytes (%) (Auto) 18.3L, Monocytes (%) (Auto) 5.0, Eosinophils (%) (Auto) 40.1H, Basophils (%) (Auto) 0.3 , Neutrophils # (Auto) 5.5, Lymphocytes # (Auto) 3.5, Monocytes # (Auto) 0.8, Eosinophils # (Auto) 6.6H, Basophils # (Auto) 0.0, C-Reactive Protein, Quantitative < 0.30, Blood Urea Nitrogen 9, Creatinine 0.62L, Sodium Level 142, Potassium Level 4.0, Chloride Level 106, Carbon Dioxide Level 28, Calcium Level 9.0, Glomerular Filtration Rate > 60.0, Large Unclassified Cells # 0.5H, Large Unclassified Cells % 2.8, Prealbumin 17.3L 04/27/16 11:29: Bedside Glucose (Misc Panel) 95 CBC/BMP Laboratory Tests 04/27/16 06:42 Calcium Level 9.0, Red Blood Count 4.32, Mean Corpuscular Volume 87.2, Mean Corpuscular Hemoglobin 28.7, Mean Corpuscular Hemoglobin Concent 32.9, Red Cell Distribution Width 16.1 H, Neutrophils (%) (Auto) 33.5 L, Lymphocytes (%) (Auto ) 18.3 L, Monocytes (%) (Auto) 5.0, Eosinophils (%) (Auto) 40.1 H, Basophils (% ) (Auto) 0.3, Neutrophils # (Auto) 5.5, Lymphocytes # (Auto) 3.5, Monocytes # ( Auto) 0.8, Eosinophils # (Auto) 6.6 H, Basophils # (Auto) 0.0 Microbiology Microbiology 04/21/16 Blood Culture - Final, Complete NO GROWTH AFTER 5 DAYS 04/21/16 Blood Culture - Final, Complete NO GROWTH AFTER 5 DAYS 04/22/16 Clostridium difficile (PCR) - Final, Complete Allergies Coded Allergies: No Known Allergies (Unverified , 06/30/15) Home Medications Scheduled Amoxicillin/Clavulanate Potas (Augmentin 875-125 mg) 1 Tab Tab 875 MG PO BID ( Reported) NEW MED - STARTED AT [facility] Aspirin (Aspirin 81) 81 Mg Tab 81 MG PO DAILY (Reported) HOME MED Atorvastatin Calcium (Atorvastatin Calcium) 20 Mg Tab 20 MG PO QHS (Reported) HOME MED Heparin Sod (Porcine) (Heparin Sodium) 5,000 Units/Ml Soln 5,000 UNITS IV TID ( Reported) NEW MED - STARTED AT [facility] Insulin Glargine (Lantus) 1 Units/0.01 Ml Susp 10 UNITS SC DAILY (Reported) HOME MED Lisinopril (Lisinopril) 30 Mg Tab 30 MG PO DAILY (Reported) DOSE CHANGE - STARTED AT [facility] Lisinopril (Lisinopril) 20 Mg Tab 20 MG PO DAILY (Reported) HOME MED - ON DISCHARGE PAPERWORK FROM [facility], [place] LISINOPRIL 40MG Metformin Hydrochloride (Metformin HCl) 1,000 Mg Tab 1,000 MG PO BID (Reported ) HOME MED Scheduled PRN Oxycodone HCl (Oxycodone HCl) 5 Mg Tab 10 MG PO Q4H PRN PRN PAIN (Reported) NEW MED - STARTED AT [facility] Oxycodone HCl (Oxycodone HCl) 5 Mg Tab 5 MG PO Q4H PRN PRN PAIN (Reported) NEW MED - STARTED AT [facility] [place] LE[place] Apr 27, 2016 15:00
[2016-04-27] MEDS ORDERED: FLAG500T PO (17:10)
[2016-04-27] MEDS ORDERED: METF1000 PO (17:10)
[2016-04-27] MEDS ORDERED: LISI40TAB PO (17:10)
[2016-04-27] MEDS ORDERED: AMLO5TAB2 PO (17:10)
[2016-04-27] MEDS ORDERED: MAPA325T2 PO (17:10)
[2016-04-27] MEDS ORDERED: ATOR1TAB21 PO (17:10)
[2016-04-27] MEDS ORDERED: ASPIRIN 81 MG ENTERIC TAB PO ONE (17:15)
--- NOTE | 2016-04-27 19:29 | REP ---
Chest x-ray: Two views: History: Cough and leukocytosis. Evaluate for pneumonia. Comparison study 10/04/2015. Findings: The lungs are symmetrically aerated and free of infiltrate. Pleural angles are sharp. Heart size is normal. There are degenerative changes in the thoracic spine including some mild wedging of two of the lower thoracic vertebrae. This is unchanged. Pulmonary vasculature is not increased. Impression: No active disease. Signed by Denys Gleason MD 04/27/2016 08:23 P
[2016-04-27 20:00] VITALS: BP 122/68
[2016-04-27 20:07] VITALS: BP 122/68
[2016-04-27] MEDS: ATORVASTATIN 20 MG TAB PO SCH (20:07)
[2016-04-27] MEDS: amLODIPine 5 MG TAB PO SCH (20:07)
[2016-04-28] MEDS: metroNIDAZOLE (FLAGYL) 500 MG TAB PO SCH (05:53)
[2016-04-28] MEDS: HEPARIN SOD (PORCINE) 5000 UNITS/ML VIAL SC SCH (05:53)
[2016-04-28 06:00] VITALS: BP 145/76
[2016-04-28 07:19] LABS: BASO % 0.2 % (0.0-1.0); EOS # 7.4 K/mm3 (0.0-0.50); EOS % 44.8 % (0.0-3.0); LARGE UNSTAINED CELL # 0.5 K/mm3 (0.0-0.4); LARGE UNSTAINED CELL % 3.1 % (0.0-4.0); LYMPH # 3.1 K/mm3 (1.5-4.5); LYMPH % 15.8 % (24.0-44.0); MEAN CORPUSCULAR HEMOGLOBIN 28.7 pg (27.0-33.0); MEAN CORPUSCULAR HGB CONC 33.1 g/dl (32.0-36.5); MEAN CORPUSCULAR VOLUME 86.6 fl (80.0-96.0); MONO # 0.8 K/mm3 (0.0-0.8); MONO % 4.6 % (0.0-5.0); NEUTROPHILS # 5.2 K/mm3 (1.8-7.7); NEUTROPHILS % 31.6 % (36.0-66.0); PLATELET COUNT, AUTOMATED 291 k/mm3 (150-450); WHITE BLOOD COUNT 16.6 K/mm3 (4.0-10.0)
[2016-04-28] MEDS: HumaLOG INSULIN (NovoLOG) PER UNIT SC SCH (07:30)
[2016-04-28 07:36] LABS: ANION GAP 8 MEQ/L (8-16); BLOOD UREA NITROGEN 7 MG/DL (7-18); CALCIUM LEVEL 8.4 MG/DL (8.5-10.1); CARBON DIOXIDE LEVEL 28 MEQ/L (21-32); CHLORIDE LEVEL 106 MEQ/L (98-107); GLOMERULAR FILTRATION RATE > 60.0 (>56); GLUCOSE, FASTING 121 MG/DL (70-105); SODIUM LEVEL 142 MEQ/L (136-145)
[2016-04-28] MEDS: LEVEMIR (INSULIN DETEMIR) 1 UNITS/0.01ML SC SCH (08:23)
[2016-04-28] MEDS: LISINOPRIL 40 MG TAB PO SCH (08:24)
[2016-04-28] MEDS: LACTOBACILLUS ACIDOPHILUS CAP (BACID) PO SCH (08:24)
[2016-04-28] MEDS: PANTOPRAZOLE 40MG TAB (PROTONIX) PO SCH (08:24)
[2016-04-28] MEDS: metFORMIN (GLUCOPHAGE) 1000 MG TABLET PO SCH (08:24)
[2016-04-28 08:44] LABS: ERYTHROCYTE SEDIMENTATION RATE 28 mm/hr (0-20)
[2016-04-28] MEDS ORDERED: ASPIRIN 81 MG ENTERIC TAB PO SCH (09:00)
[2016-04-28] MEDS ORDERED: VANC125C2 PO (11:46)
--- NOTE | 2016-04-28 12:18 | IPNPDOC ---
Subjective Date Seen The patient was seen on 04/28/16. Subjective Chief Complaint/HPI The patient is a 51-year-old male admitted with a reason for visit of Left Bka. Events since last encounter Re evaluating pt for elevated WBC count. Pt states he is feeling well and ready for d/c that is set up for today. He is leaving here and following up with his vascular surgeon. He denies SOB/Cough. Denies urinary complaints. denies and changes to RLE, warmth, increased edema, erythema. Pulmonary: Denies: Cough, Dyspnea Cardiovascular: Denies: Chest Pain, Lt Headedness, Orthopnea, Palpitations, Paroxysmal Noc. Dyspnea Gastrointestinal: Denies: Abdominal Pain, Constipation, Diarrhea, Nausea, Vomiting Genitourinary: Denies: Dysuria, Frequency, Incontinence, Retention Objective Physical Examination General Exam: Positive: Alert Eye Exam: Positive: PERRLA ENT Exam: Positive: Atraumatic Chest Exam: Positive: Clear to auscultation, Normal air movement Heart Exam: Positive: Normal S1, Normal S2, Rate Normal, Regular Rhythm, Negative: Murmurs, Rubs Abdomen Exam: Positive: Normal bowel sounds, Soft, Negative: Hepatospenomegaly, Tenderness Extremity Exam: Positive: Other (LLE BKA, RLE area with no significant swelling , erythema, or drainage. Approximate 1-1.5 cm diameter ulceration noted. ) Skin Exam: Positive: Nl turgor and temperature Assessment /Plan Problems (1) C. difficile colitis Status: Acute Response to Treatment: Stable Problem Text: * Pt to finish course of Flagyl. * Stools formed and improving. * Afebrile. * Outpt f/u with PCP (2) S/P BKA (below knee amputation) Status: Acute Response to Treatment: Stable Problem Text: * S/P Lt BKA * Pt to f/u with his vascular surgeon after d/c today (3) Leukocytosis Status: Acute Problem Text: * Pt afebrile * WBC with no signif changes today. * No respiratory sx. * UC negative. * Have re examined RLE today. * Discussed with Dr Soriano who also examined. The chronic wound does not appear to be actively infected at this time. Would advise also discussing this with his vascular surgeon at his appt today. * No additional antibiotics recommended at this time. Plan/VTE VTE Prophylaxis Ordered?: No (Pt discharging today) VS, I&O, 24H, [facility] Vital Signs/I&O Vital Signs Date Time Temp Pulse Resp B/P Pulse Ox O2 Delivery O2 Flow Rate FiO2 04/28/16 07:30 Room Air 04/28/16 06:00 97.2 86 18 145/76 96 I&O- Last 24 Hours up to 6 AM 04/28/16 05:59 Intake Total 1560 ml Balance 1560 ml Laboratory Data 24H LABS Laboratory Tests 2 04/27/16 15:04: Urine Amorphous Sediment , Urine Appearance CLEAR, Urine Color YELLOW, Urine pH 5.0, Urine Specific [place] 1.017, Urine Protein NEGATIVE, Urine Glucose (UA) NEGATIVE, Urine Ketones NEGATIVE, Urine Urobilinogen 0.2, Urine Bilirubin NEGATIVE, Urine Leukocyte Esterase TRACEH, Urine Bacteria (Auto) NEGATIVE, Urine Blood NEGATIVE, Urine Calcium Carbonate Cryst(Auto) , Urine Calcium Oxalate Cryst (Auto) , Urine Calcium Phosphate Deanne (Auto) , Urine Cellular Casts , Urine Cystine Crystals , Urine Granular Casts (Auto) , Urine Hyaline Casts (Auto) 0, Urine Leucine Crystals , Urine Mucus (Auto) , Urine Nitrite NEGATIVE, Urine Oval Fat Bodies (Auto) , Urine RBC (Auto) 2, Urine Renal Epithelial Cells , Urine Sperm (Auto) , Urine Squamous Epithelial Cells 0, Urine Transitional Epithelial Cells , Urine Trichomonas (Auto) , Urine Triple Phosphate Cryst (Auto) , Urine Tyrosine Crystals , Urine Uric Acid Crystals ( Auto) , Urine WBC (Auto) 1, Urine Waxy Casts (Auto) , Urine Yeast-Like Cells ( Auto) 04/27/16 16:27: Bedside Glucose (Misc Panel) 114H 04/27/16 19:50: Bedside Glucose (Misc Panel) 132H 04/28/16 06:49: Bedside Glucose (Misc Panel) 118H 04/28/16 06:58: Anion Gap 8, White Blood Count 16.6H, Red Blood Count 4.25L, Hemoglobin 12.2L, Hematocrit 36.8L, Mean Corpuscular Volume 86.6, Mean Corpuscular Hemoglobin 28.7 , Mean Corpuscular Hemoglobin Concent 33.1, Red Cell Distribution Width 16.0H, Platelet Count 291, Neutrophils (%) (Auto) 31.6L, Lymphocytes (%) (Auto) 15.8L, Monocytes (%) (Auto) 4.6, Eosinophils (%) (Auto) 44.8H, Basophils (%) (Auto) 0.2 , Neutrophils # (Auto) 5.2, Lymphocytes # (Auto) 3.1, Monocytes # (Auto) 0.8, Eosinophils # (Auto) 7.4H, Basophils # (Auto) 0.0, C-Reactive Protein, Quantitative < 0.30, Blood Urea Nitrogen 7, Creatinine 0.60L, Sodium Level 142, Potassium Level 4.0, Chloride Level 106, Carbon Dioxide Level 28, Calcium Level 8.4L, Erythrocyte Sedimentation Rate 28H, Glomerular Filtration Rate > 60.0, Large Unclassified Cells # 0.5H, Large Unclassified Cells % 3.1 CBC/BMP Laboratory Tests 04/28/16 06:58 Calcium Level 8.4 L, Red Blood Count 4.25 L, Mean Corpuscular Volume 86.6, Mean Corpuscular Hemoglobin 28.7, Mean Corpuscular Hemoglobin Concent 33.1, Red Cell Distribution Width 16.0 H, Neutrophils (%) (Auto) 31.6 L, Lymphocytes (%) (Auto ) 15.8 L, Monocytes (%) (Auto) 4.6, Eosinophils (%) (Auto) 44.8 H, Basophils (% ) (Auto) 0.2, Neutrophils # (Auto) 5.2, Lymphocytes # (Auto) 3.1, Monocytes # ( Auto) 0.8, Eosinophils # (Auto) 7.4 H, Basophils # (Auto) 0.0 Microbiology Microbiology 04/21/16 Blood Culture - Final, Complete NO GROWTH AFTER 5 DAYS 04/21/16 Blood Culture - Final, Complete NO GROWTH AFTER 5 DAYS 04/22/16 Clostridium difficile (PCR) - Final, Complete 04/27/16 Urine Culture - Final, Complete Beryl Rogers Apr 28, 2016 12:18
--- NOTE | 2016-04-28 12:20 | DS.PDOC ---
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 Ríos DISCHARGE DIAGNOSES 1. 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 C. diff colitis 3. Hypertension 5. Diabetes mellitus, insulin-dependent 6. Peripheral vascular disease 7. Malnutrition IDENTIFICATION STATEMENT: Patient is a 51-year-old gentleman status post left below the knee amputation admitted for comprehensive integrated inpatient rehabilitation. PAST MEDICAL HISTORY: Hypertension Insulin-dependent diabetes mellitus Dyslipidemia Cellulitis PAST SURGICAL HISTORY: Left great toe amputation HOSPITAL COURSE: The patient underwent daily physical and occupational therapy. He tolerated his therapy sessions well and made progressive gains. Surgical site was monitored periodically and noted to be healing well. Isidra were removed on 04/27/16. He was provided with appointment with his vascular surgeon immediately following discharge for follow-up and suture removal. Initial discharge date was extended due to the patient developing c.diff colitis (see below). On 04/28/16 he was deemed stable discharge home with [facility]. Other issues addressed while on the rehabilitation unit are outlined as follows: 1. C. diff colitis: Initially started on Flagyl and seemed to be responding based on decreased WBC count and formed stools. Due to increased WBC count, changed to vancomycin before discharge. 2. Leukocytosis: Wright cultured and CXR done. Hospitalist also consulted. As above, changed Flagyl to vanco. 3. Hypertension: Improved control s/p addition of Norvasc. Continued on Lisinopril. 4. Diabetes mellitus, insulin-dependent: Continued metformin 1000 mg twice a day along with detemir 10 units subcutaneous daily. Insulin sliding scale before meals and at bedtime. 5. Peripheral vascular disease: Continue aspirin 81 mg daily, continue Lipitor 20 mg daily at bedtime. 6. DVT ppx: Continued on Heparin SQ. SCD on right d/cd second to patients request/reported discomfort. 7. Pain: Adequately controlled. Maintained Tyl and Percocet, although patient didnt require Percocet after 04/16/16. 8. Malnutrition: Prealbumin low. Provided with Glucerna. Maintain patient on a carbohydrate consistent diet. VITAL SIGNS: Temperature 97.0F, pulse 86, respiratory rate of 18, blood pressure 145/76, pulse ox 96% on room air PHYSICAL EXAMINATION: GENERAL: Well nourished, well developed, sitting up in WC, no acute distress. HEENT: Atraumatic. PERRL, EOMI CARDIOVASCULAR: S1, S2, regular rate. No right lower limb pitting edema or calf tenderness. LUNGS: Clear to auscultation bilaterally, no wheezing rhonchi or rales. ABDOMEN: Soft, nontender, nondistended. Normoactive bowel sounds throughout. MUSCULOSKELETAL: MMT: 5/5 strength right lower limb in all major muscle groups , 5/5 left hip flexors, 5/5 left knee extension. NEUROLOGICAL: Alert and oriented x 3. Answers all questions appropriately. Able to follow commands without difficulty. SKIN: Left residual limb, C/D/I with sutures, no pus or significant erythema; right silva sores/ulceration, moderate surrounding erythema, size of central lesion ~ same, more distal lesion with scab (~same). Chronic venous stasis changes right leg. LABORATORY DATA: 04/28/16: reviewed, see below 04/22/16: stool +c.diff Blood Cx x 2: 04/21/16 NGTD UCx 04/27/16: essentially negative UC04/27/16: pending IMAGING: CXR 04/27/16: non-acute Venous insufficiency exam 04/06/2016, no evidence of DVT left side. ALLERGIES: NKDA MEDICATIONS: Vanco 125mg qid Lisinopril 40 mg daily Norvasc 5mg qpm Aspirin 81 mg daily Lipitor 20 mg daily Metformin 1000 mg by mouth twice daily Lantus 10 units subcutaneous daily ISS ACHS DISCHARGE DISPOSITION: 1. The patient discharge home with [facility] 2. The patient discharged in stable condition 3. Discharged with [facility] to include RN, PT, OT and bath aide. 4. Equipment: Front wheel walker & slideboard 5. 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 / Vital Signs/I&O Vital Sign - Last 24 Hours 04/27/16 04/27/16 04/27/16 04/27/16 14:00 20:00 20:07 20:30 Temp 97.6 97.7 Pulse 88 86 86 Resp 18 18 B/P 130/73 122/68 122/68 Pulse Ox 92 98 O2 Delivery Room Air Room Air Room Air 04/28/16 04/28/16 06:00 07:30 Temp 97.2 Pulse 86 Resp 18 B/P 145/76 Pulse Ox 96 O2 Delivery Room Air Room Air I&O- Last 24 Hours up to 6 AM 04/28/16 06:00 Intake Total 1680 ml Output Total 1 ml Balance 1679 ml Laboratory Data CBC/BMP Laboratory Tests 04/27/16 06:42 Calcium Level 9.0, Red Blood Count 4.32, Mean Corpuscular Volume 87.2, Mean Corpuscular Hemoglobin 28.7, Mean Corpuscular Hemoglobin Concent 32.9, Red Cell Distribution Width 16.1 H, Neutrophils (%) (Auto) 33.5 L, Lymphocytes (%) (Auto ) 18.3 L, Monocytes (%) (Auto) 5.0, Eosinophils (%) (Auto) 40.1 H, Basophils (% ) (Auto) 0.3, Neutrophils # (Auto) 5.5, Lymphocytes # (Auto) 3.5, Monocytes # ( Auto) 0.8, Eosinophils # (Auto) 6.6 H, Basophils # (Auto) 0.0 04/28/16 06:58 Calcium Level 8.4 L, Red Blood Count 4.25 L, Mean Corpuscular Volume 86.6, Mean Corpuscular Hemoglobin 28.7, Mean Corpuscular Hemoglobin Concent 33.1, Red Cell Distribution Width 16.0 H, Neutrophils (%) (Auto) 31.6 L, Lymphocytes (%) (Auto ) 15.8 L, Monocytes (%) (Auto) 4.6, Eosinophils (%) (Auto) 44.8 H, Basophils (% ) (Auto) 0.2, Neutrophils # (Auto) 5.2, Lymphocytes # (Auto) 3.1, Monocytes # ( Auto) 0.8, Eosinophils # (Auto) 7.4 H, Basophils # (Auto) 0.0 Labs 48H Laboratory Tests 04/26/16 16:23: Bedside Glucose (Misc Panel) 128H 04/26/16 20:43: Bedside Glucose (Misc Panel) 95 04/27/16 06:13: Bedside Glucose (Misc Panel) 111H 04/27/16 06:42: Anion Gap 8, White Blood Count 16.4H, Red Blood Count 4.32, Hemoglobin 12.4L, Hematocrit 37.6L, Mean Corpuscular Volume 87.2, Mean Corpuscular Hemoglobin 28.7 , Mean Corpuscular Hemoglobin Concent 32.9, Red Cell Distribution Width 16.1H, Platelet Count 288, Neutrophils (%) (Auto) 33.5L, Lymphocytes (%) (Auto) 18.3L, Monocytes (%) (Auto) 5.0, Eosinophils (%) (Auto) 40.1H, Basophils (%) (Auto) 0.3 , Neutrophils # (Auto) 5.5, Lymphocytes # (Auto) 3.5, Monocytes # (Auto) 0.8, Eosinophils # (Auto) 6.6H, Basophils # (Auto) 0.0, Blood Urea Nitrogen 9, Creatinine 0.62L, Sodium Level 142, Potassium Level 4.0, Chloride Level 106, Carbon Dioxide Level 28, Calcium Level 9.0, C-Reactive Protein, Quantitative < 0.30, Fasting Glucose 125H, Glomerular Filtration Rate > 60.0, Large Unclassified Cells # 0.5H, Large Unclassified Cells % 2.8, Prealbumin 17.3L 04/27/16 11:29: Bedside Glucose (Misc Panel) 95 04/27/16 15:04: Urine Amorphous Sediment , Urine Appearance CLEAR, Urine Color YELLOW, Urine pH 5.0, Urine Specific [place] 1.017, Urine Protein NEGATIVE, Urine Glucose (UA) NEGATIVE, Urine Ketones NEGATIVE, Urine Urobilinogen 0.2, Urine Bilirubin NEGATIVE, Urine Leukocyte Esterase TRACEH, Urine Bacteria (Auto) NEGATIVE, Urine Blood NEGATIVE, Urine Calcium Carbonate Cryst(Auto) , Urine Calcium Oxalate Cryst (Auto) , Urine Calcium Phosphate Deanne (Auto) , Urine Cellular Casts , Urine Cystine Crystals , Urine Granular Casts (Auto) , Urine Hyaline Casts (Auto) 0, Urine Leucine Crystals , Urine Mucus (Auto) , Urine Nitrite NEGATIVE, Urine Oval Fat Bodies (Auto) , Urine RBC (Auto) 2, Urine Renal Epithelial Cells , Urine Sperm (Auto) , Urine Squamous Epithelial Cells 0, Urine Transitional Epithelial Cells , Urine Trichomonas (Auto) , Urine Triple Phosphate Cryst (Auto) , Urine Tyrosine Crystals , Urine Uric Acid Crystals ( Auto) , Urine WBC (Auto) 1, Urine Waxy Casts (Auto) , Urine Yeast-Like Cells ( Auto) 04/27/16 16:27: Bedside Glucose (Misc Panel) 114H 04/27/16 19:50: Bedside Glucose (Misc Panel) 132H 04/28/16 06:49: Bedside Glucose (Misc Panel) 118H 04/28/16 06:58: Anion Gap 8, White Blood Count 16.6H, Red Blood Count 4.25L, Hemoglobin 12.2L, Hematocrit 36.8L, Mean Corpuscular Volume 86.6, Mean Corpuscular Hemoglobin 28.7 , Mean Corpuscular Hemoglobin Concent 33.1, Red Cell Distribution Width 16.0H, Platelet Count 291, Neutrophils (%) (Auto) 31.6L, Lymphocytes (%) (Auto) 15.8L, Monocytes (%) (Auto) 4.6, Eosinophils (%) (Auto) 44.8H, Basophils (%) (Auto) 0.2 , Neutrophils # (Auto) 5.2, Lymphocytes # (Auto) 3.1, Monocytes # (Auto) 0.8, Eosinophils # (Auto) 7.4H, Basophils # (Auto) 0.0, Blood Urea Nitrogen 7, Creatinine 0.60L, Sodium Level 142, Potassium Level 4.0, Chloride Level 106, Carbon Dioxide Level 28, Calcium Level 8.4L, C-Reactive Protein, Quantitative < 0.30, Erythrocyte Sedimentation Rate 28H, Fasting Glucose 121H, Glomerular Filtration Rate > 60.0, Large Unclassified Cells # 0.5H, Large Unclassified Cells % 3.1 FSBS Laboratory Tests Test 04/27/16 16:27 04/27/16 19:50 04/28/16 06:49 Range/Units Bedside Glucose (Misc Panel) 114 132 118 70-105 MG/DL Microbiology Microbiology 04/21/16 Blood Culture - Final, Complete NO GROWTH AFTER 5 DAYS 04/21/16 Blood Culture - Final, Complete NO GROWTH AFTER 5 DAYS 04/22/16 Clostridium difficile (PCR) - Final, Complete 04/27/16 Urine Culture - Final, Complete Medications Medications Current Medications Acetaminophen (Tylenol Tab) 650 mg Q4HP PRN PO MILD PAIN (PS 1-4) Last administered on 04/20/16 06:38; Start 04/15/16 at 14:00; Stop 05/15/16 at 13:59 Amlodipine Besylate (Norvasc) 5 mg QPM PO Last administered on 04/27/16 20:07 ; Start 04/17/16 at 21:00; Stop 05/17/16 at 20:59 Amoxicillin/ Clavulanate Potassium (Augmentin Es 600mg/5ml Susp.) 1,000 mg Q12H PO Last administered on 04/22/16 09:35; Start 04/15/16 at 21:00; Stop 04/22/16 at 10:16; Status DC Aspirin (Ecotrin) 81 mg DAILY PO Last administered on 04/28/16 08:24; Start at 09:00; Stop 05/28/16 at 08:59 Atorvastatin Calcium (Lipitor) 20 mg QHS PO Last administered on 04/27/16 20: 07; Start 04/15/16 at 21:00; Stop 05/15/16 at 20:59 Dextrose (Dextrose 50%) 25 ml ASDIRECTED PRN IV SEE LABEL COMMENTS; Start at 14:00; Stop 05/15/16 at 13:59 Docusate Sodium (Colace) 100 mg BID PO Last administered on 04/18/16 10:22; Start 04/15/16 at 21:00; Stop 04/22/16 at 10:17; Status DC Glucagon (Glucagon) 1 mg ASDIRECTED PRN SC SEE LABEL COMMENTS; Start 04/15/16 at 14:00; Stop 05/15/16 at 13:59 Glucose (Glucose) 16 GM ASDIRECTED PRN PO SEE LABEL COMMENTS; Start 04/15/16 at 14:00; Stop 05/15/16 at 13:59 Heparin Sodium (Porcine) (Heparin) 5,000 units Q8H SC Last administered on 04/28 05:53; Start 04/15/16 at 22:00; Stop 04/29/16 at 21:59 Home Med (Med Rec Complete!) ASDIRECTED XX ; Start 04/15/16 at 18:15; Stop at 18:16; Status DC Insulin Detemir (Levemir Insulin) 10 units DAILY SC Last administered on 08:23; Start 04/16/16 at 09:00; Stop 05/16/16 at 08:59 Insulin Human Lispro (HumaLOG INSULIN) See Protocol Table AC SC Last administered on 04/28/16 07:30; Start 04/15/16 at 17:30; Stop 05/15/16 at 17:29 Insulin Human Lispro (HumaLOG INSULIN) See Protocol Table QHS SC ; Start at 21:00; Stop 05/15/16 at 20:59 Lactobacillus Acidophilus (Bacid) 1 ea BID PO Last administered on 04/28/16 08 :24; Start 04/15/16 at 21:00; Stop 05/15/16 at 20:59 Lisinopril (Prinivil) 30 mg DAILY PO ; Start 04/16/16 at 09:00; Stop 04/16/16 at 09:00; Status DC Lisinopril (Prinivil) 40 mg DAILY PO Last administered on 04/28/16 08:24; Start 04/16/16 at 09:00; Stop 05/16/16 at 08:59 Magnesium Hydroxide (Milk Of Magnesia) 30 ml DAILYPRN PRN PO CONSTIPATION; Start 04/15/16 at 14:00; Stop 05/15/16 at 13:59 Metformin HCl (Glucophage) 1,000 mg BID@ PO Last administered on 08:24; Start 04/15/16 at 18:00; Stop 05/15/16 at 17:59 Metronidazole (Flagyl) 500 mg Q8H PO Last administered on 04/28/16 05:53; Start 04/22/16 at 06:00; Stop 04/29/16 at 05:59 Oxycodone/ Acetaminophen (Percocet 5mg/ 325mg Tablet) 1 tab Q4HP PRN PO MODERATE PAIN (PS 6-7) Last administered on 04/16/16 08:13; Start 04/15/16 at 14: 00; Stop 05/04/16 at 13:59 Oxycodone/ Acetaminophen (Percocet 5mg/ 325mg Tablet) 2 tab Q8HP PRN PO SEVERE PAIN (PS 8-10); Start 04/15/16 at 14:00; Stop 05/04/16 at 13:59 Pantoprazole Sodium (Protonix) 40 mg DAILY PO Last administered on 04/28/16 08 :24; Start 04/16/16 at 09:00; Stop 05/16/16 at 08:59 Polyethylene Glycol (Miralax) 1 pkt DAILY PRN PO CONSTIPATION; Start 04/15/16 at 14:00; Stop 05/15/16 at 13:59 Senna (Senokot) 1 tab QHS PO ; Start 04/15/16 at 21:00; Stop 04/22/16 at 10:17; Status DC Scheduled Amlodipine Besylate (Amlodipine Besylate) 5 Mg Tab 5 MG PO QPM Aspirin (Aspirin 81) 81 Mg Tab 81 MG PO DAILY (Reported) HOME MED Atorvastatin Calcium (Atorvastatin Calcium) 20 Mg Tab 20 MG PO QHS HOME MED Insulin Glargine (Lantus) 1 Units/0.01 Ml Susp 10 UNITS SC DAILY (Reported) HOME MED Lisinopril (Lisinopril) 40 Mg Tab 40 MG PO DAILY Metformin Hydrochloride (Metformin HCl) 1,000 Mg Tab 1,000 MG PO BID HOME MED Vancomycin Hcl (Vancomycin HCl) 125 Mg Cap 125 MG PO QID Scheduled PRN Acetaminophen (Mapap) 325 Mg Tab 650 MG PO Q4HP PRN PRN MILD PAIN (PS 1-4) don't exceed 4gm /24h, all sources Allergies Coded Allergies: No Known Allergies (Unverified , 06/30/15) FRANCES MIRANDA MD Apr 28, 2016 12:20
== END 2016-04-28 12:20 | disposition home health service (06) | DRG 862 ==
LOC: M PM&R 15:15
PROVIDERS: ADMIT Physical Medicine & Rehabilitation; ATTEND Physical Medicine & Rehabilitation
DX: Z47.81 Encounter for orthopedic aftercare following surgical amputation (principal); E11.51 Type 2 diabetes mellitus with diabetic peripheral angiopathy without gangrene; I10 Essential (primary) hypertension; E78.5 Hyperlipidemia, unspecified; E46 Unspecified protein-calorie malnutrition; I73.9 Peripheral vascular disease, unspecified; G47.00 Insomnia, unspecified; A04.7 Enterocolitis due to Clostridium difficile; D64.9 Anemia, unspecified; L97.919 Non-pressure chronic ulcer of unspecified part of right lower leg with unspecified severity; Z79.4 Long term (current) use of insulin; Z79.82 Long term (current) use of aspirin; Z79.899 Other long term (current) drug therapy; Z79.891 Long term (current) use of opiate analgesic; Z89.512 Acquired absence of left leg below knee; Z89.412 Acquired absence of left great toe; Z88.2 Allergy status to sulfonamides

== ENCOUNTER → 2016-05-06 | Outpatient (REF) | payer OTHER ==
[~2016-05-06] MED LIST changes: +AMLO5TAB2 PO; +ASPI1TAB PO; +FLAG500T PO; +HEPA500020 IV; +LISI30TA4 PO; +LISI40TAB PO; +OXYC-517 PO; +VANC125C2 PO
[2016-05-06 17:16] LABS: ALBUMIN 3.3 GM/DL (3.2-5.2); ALBUMIN/GLOBULIN RATIO 0.89 (1.00-1.93); ALKALINE PHOSPHATASE 71 U/L (45-117); ALT/SGPT 19 U/L (12-78); ANION GAP 8 MEQ/L (8-16); AST/SGOT 11 U/L (15-37); BILIRUBIN,TOTAL 0.3 MG/DL (0.2-1.0); BLOOD UREA NITROGEN 16 MG/DL (7-18); CALCIUM LEVEL 9.3 MG/DL (8.5-10.1); CARBON DIOXIDE LEVEL 29 MEQ/L (21-32); CHLORIDE LEVEL 105 MEQ/L (98-107); CREATININE FOR GFR 0.63 MG/DL (0.70-1.30); GLOMERULAR FILTRATION RATE > 60.0 (>56); GLUCOSE, FASTING 174 MG/DL (70-105); POTASSIUM SERUM 4.6 MEQ/L (3.5-5.1); SODIUM LEVEL 142 MEQ/L (136-145)
[2016-05-06 18:43] LABS: MEAN CORPUSCULAR HEMOGLOBIN 28.6 pg (27.0-33.0); MEAN CORPUSCULAR HGB CONC 32.1 g/dl (32.0-36.5); MEAN CORPUSCULAR VOLUME 88.9 fl (80.0-96.0); PLATELET COUNT, AUTOMATED 287 k/mm3 (150-450); RED CELL DISTRIBUTION WIDTH 15.6 % (11.5-14.5); WHITE BLOOD COUNT 9.6 K/mm3 (4.0-10.0)
[2016-05-06 19:49] LABS: BASOPHILS 1 % (0-4); EOSINOPHILS 14 % (0-5)
== END ==
LOC: M SFHCLERA 16:16
PROVIDERS: ATTEND Family Medicine
DX: A04.7 Enterocolitis due to Clostridium difficile (principal); E11.65 Type 2 diabetes mellitus with hyperglycemia

== ENCOUNTER → 2016-06-04 | Outpatient (CLI) | payer OTHER ==
[~2016-06-04] MED LIST changes: -COLA100C PO; +COLA100C3 PO
== END ==
LOC: M PT 08:50
PROVIDERS: ATTEND Family Medicine
DX: Z89.512 Acquired absence of left leg below knee (principal); E11.621 Type 2 diabetes mellitus with foot ulcer

== ENCOUNTER → 2016-07-08 | Outpatient (REF) | payer OTHER ==
[2016-07-08 20:27] LABS: MEAN CORPUSCULAR HEMOGLOBIN 27.8 pg (27.0-33.0); MEAN CORPUSCULAR VOLUME 84.2 fl (80.0-96.0); RED CELL DISTRIBUTION WIDTH 13.7 % (11.5-14.5); WHITE BLOOD COUNT 13.4 K/mm3 (4.0-10.0)
[2016-07-08 20:39] LABS: ALBUMIN 3.3 GM/DL (3.2-5.2); ALBUMIN/GLOBULIN RATIO 0.83 (1.00-1.93); ALKALINE PHOSPHATASE 83 U/L (45-117); ALT/SGPT 14 U/L (12-78); ANION GAP 6 MEQ/L (8-16); AST/SGOT 7 U/L (15-37); BILIRUBIN,TOTAL 0.2 MG/DL (0.2-1.0); BLOOD UREA NITROGEN 14 MG/DL (7-18); CALCIUM LEVEL 8.7 MG/DL (8.5-10.1); CARBON DIOXIDE LEVEL 29 MEQ/L (21-32); CHLORIDE LEVEL 107 MEQ/L (98-107); CHOLESTEROL LEVEL 125 MG/DL (<200); GLOMERULAR FILTRATION RATE > 60.0 (>56); GLUCOSE, FASTING 83 MG/DL (70-105); POTASSIUM SERUM 4.2 MEQ/L (3.5-5.1); SODIUM LEVEL 142 MEQ/L (136-145); TOTAL PROTEIN 7.3 GM/DL (6.4-8.2); TRIGLYCERIDES LEVEL 98 MG/DL (<150)
== END ==
LOC: M SFHCLERA 15:52
PROVIDERS: ATTEND Family Medicine
DX: E11.65 Type 2 diabetes mellitus with hyperglycemia (principal); Z12.11 Encounter for screening for malignant neoplasm of colon

== ENCOUNTER → 2016-09-09 | Outpatient (REF) | payer OTHER ==
[~2016-09-09] MED LIST changes: -ASPI81TA13 PO; +ASPI81TA24 PO; -AUGM875T27 PO; +AUGM875T28 PO; -COLA100C3 PO; +COLA100C5 PO; -METF1000 PO; +METF10004 PO; -METF500T PO; +METF500T13 PO
== END ==
LOC: M SFHCLERA 12:12
PROVIDERS: ATTEND Family Medicine
DX: E11.65 Type 2 diabetes mellitus with hyperglycemia (principal)